=== PATIENT | male | born 1975 | race Caucasian/White ===

== ENCOUNTER 2017-04-02 19:01 | Inpatient (IN) | payer BC ==
[2017-04-02] MEDS ORDERED: Acetaminophen 325 MG Tab PO ONE (19:10)
[2017-04-02] MEDS ORDERED: Acetaminophen 500 MG Tab PO ONE (19:13)
--- NOTE | 2017-04-02 19:35 | EDM.PDOC ---
ED HPI GENERAL MEDICAL PROBLEM - General Chief Complaint: Lower Extremity Injury/Pain Stated Complaint: sore LLE Time Seen by Provider: 04/02/17 19:08 Source of Information: Reports: Patient History Limitations: Reports: No Limitations - History of Present Illness INITIAL COMMENTS - FREE TEXT/NARRATIVE: This patient is a 41 year old male that presents to the ER. Patient is noncompliant patient. Patient is HTN and Diabetic, but has not been taking his medications. The patient reports that on he began to have fever, chills , diaphoresis, generally not feeling well. Patient reports later that evening he noticed his Left leg had redness, swelling, heat. Patient reports his did want him to go to the clinic on Monday, but the patient did not go. Patient reports it has now become worse. He reports that he generally feels worse and the redness in his left leg has become much worse. The patient is alert and oriented. The patient denies palma, dizziness, neck pain, neck stiffness, chest pain, shortness of breath, abd pain, urinary/bowel changes. Patient reports that he has had some nausea and vomited x2. Onset Date: 03/30/17 Location: Reports: Lower Extremity, Left Quality: Reports: Ache Severity: Moderate Improves with: Reports: None Worsens with: Reports: None Associated Symptoms: Reports: Diaphoresis, Fever/Chills, Malaise, Nausea/ Vomiting. Denies: Confusion, Chest Pain, Cough, cough w sputum, Headaches, Loss of Appetite, Rash, Seizure, Shortness of Breath, Syncope, Weakness Treatments GENERAL ASSISTANT: Reports: NSAIDS Left Leg Pain Score (Numeric/FACES): 9 - Related Data Allergies Allergy/AdvReac Type Severity Reaction Status Date / Time Penicillins Allergy Cannot Verified 04/02/17 19:10 Remember Home Meds: Home Meds Hydrochlorothiazide 25 mg PO DAILY 11/06/15 [History] Lisinopril 20 mg PO DAILY 11/06/15 [History] Spironolactone [Aldactone] 25 mg PO DAILY 11/06/15 [History] metFORMIN HCl [Metformin HCl] 500 mg PO BID 11/06/15 [History] Aspirin [Halfprin] 81 mg PO DAILY 04/02/17 [History] amLODIPine [Norvasc] 5 mg PO DAILY 04/02/17 [History] Past Medical History Cardiovascular History: Reports: Hypertension Genitourinary History: Reports: Chronic Renal Insuffiency Endocrine/Metabolic History: Reports: Diabetes, Type II, Obesity/BMI 30+ Dermatologic History: Reports: Other (See Below) Other Dermatologic History: cellulitis, MRSA - Infectious Disease History Infectious Disease History: Reports: MRSA - Past Surgical History HEENT Surgical History: Reports: Tonsillectomy Social & Family History - Family History Family Medical History: Noncontributory - Tobacco Use Smoking Status *Q: Never Smoker Second Hand Smoke Exposure: No - Caffeine Use Caffeine Use: Reports: Soda - Recreational Drug Use Recreational Drug Use: No Review of Systems - Review of Systems Review Of Systems: See Below Constitutional: Reports: Chills, Diaphoresis, Fever, Weakness (gnerally) Eyes: Reports: No Symptoms Ears: Reports: No Symptoms Nose: Reports: No Symptoms Mouth/Throat: Reports: No Symptoms Respiratory: Reports: No Symptoms Cardiovascular: Reports: No Symptoms GI/Abdominal: Reports: Nausea, Vomiting. Denies: Abdominal Pain, Diarrhea Genitourinary: Reports: No Symptoms Musculoskeletal: Reports: No Symptoms Skin: Reports: Erythema (LLE) Neurological: Reports: No Symptoms Psychiatric: Reports: No Symptoms ED EXAM, GENERAL - Physical Exam Exam: See Below Exam Limited By: No Limitations General Appearance: Alert, WD/WN, No Apparent Distress, Obese Eye Exam: Bilateral Eye: Normal Inspection, PERRL Ears: Normal External Exam, Normal Canal, Hearing Grossly Normal, Normal TMs Ear Exam: Bilateral Ear: Auricle Normal, Canal Normal, TM normal Nose: Normal Inspection, Normal Mucosa, No Blood Throat/Mouth: Normal Inspection, Normal Lips, Normal Teeth, Normal Gums, Normal Oropharynx, Normal Voice, No Airway Compromise Head: Atraumatic, Normocephalic Neck: Normal Inspection, Supple, Non-Tender, Full Range of Motion Respiratory/Chest: No Respiratory Distress, Lungs Clear, Normal Breath Sounds, No Accessory Muscle Use Cardiovascular: Normal Peripheral Pulses, No Edema, No Gallop, No JVD, No Murmur , No Rub, Tachycardia (120 on exam) Peripheral Pulses: 2+: Popliteal (L), Popliteal (R), Posterior Tibial (L), Posterior Tibial (R), Dorsalis Pedis (L), Dorsalis Pedis (R) Back Exam: Normal Inspection, Full Range of Motion Extremities: Leg Pain (LLE), Redness (LLE, Redness, heat, swelling from ankle to below knee circumferential. Posterior from ankle to mid upper thigh. ) Neurological: Alert, Oriented, Normal Cognition, Normal Gait, No Motor/Sensory Deficits Psychiatric: Normal Affect, Normal Mood Skin Exam: Warm, Dry, Intact, Normal Color, Pallor Lymphatic: No Adenopathy Course - Vital Signs Last Recorded V/S: Last Vital Signs Temp 100.4 F 04/03/17 00:09 Pulse 95 04/03/17 00:09 Resp 20 04/03/17 00:09 BP 197/104 H 04/03/17 00:09 Pulse Ox 96 04/03/17 00:09 - Orders/Labs/Meds Orders: Active Orders 24 hr Category Date Time Status VL Duplex Lwr Ext Veins Ltd Lt [US] Stat Exams 04/02/17 19:18 Taken CULTURE BLOOD [BC] Stat Lab 04/02/17 19:31 Received CULTURE BLOOD [BC] Stat Lab 04/02/17 19:31 Received Blood Culture x2 Reflex Set [OM.PC] Stat Oth 04/02/17 19:07 Ordered Medication Orders Acetaminophen (Tylenol) 650 mg PO Q4H PRN PRN Reason: Pain (Mild 1-3)/fever Hydrocodone Bitart/Acetaminophen ([place] 325-5 Mg) 2 tab PO Q4H PRN PRN Reason: Pain (moderate 4-6) Amlodipine Besylate (Norvasc) 5 mg PO DAILY [facility] Aspirin (Halfprin) 81 mg PO DAILY [facility] Ceftriaxone Sodium (Rocephin) 1 gm IVPUSH Q24H [facility] Docusate Sodium (Colace) 100 mg PO BID PRN PRN Reason: Constipation Enoxaparin Sodium (Lovenox) 160 mg SUBCUT Q12H [facility] Last Admin: 04/03/17 00:59 Dose: 160 mg Hydrochlorothiazide (Hydrochlorothiazide) 25 mg PO DAILY [facility] Sodium Chloride (Normal Saline) 1,000 mls @ 75 mls/hr IV ASDIRECTED [facility] Last Admin: 04/03/17 01:01 Dose: 75 mls/hr Vancomycin HCl 1 gm/ Sodium (Chloride) 250 mls @ 167 mls/hr IV Q24H [facility] Vancomycin HCl 1 gm/ Sodium (Chloride) 250 mls @ 167 mls/hr IV ONETIME ONE Stop: 04/03/17 02:38 Last Admin: 04/03/17 01:29 Dose: 167 mls/hr Ibuprofen (Motrin) 800 mg PO Q6H PRN PRN Reason: Pain (mild 1-3) Last Admin: 04/03/17 00:58 Dose: 800 mg Lisinopril (Prinivil) 20 mg PO DAILY [facility] Metformin HCl (Glucophage) 500 mg PO BID [facility] Morphine Sulfate (Morphine) 2 mg IVPUSH Q2H PRN PRN Reason: Pain (severe 7-10) Ondansetron HCl (Zofran) 4 mg IV Q6H PRN PRN Reason: Nausea/Vomiting Spironolactone (Aldactone) 25 mg PO DAILY [facility] Warfarin Sodium (Coumadin) 5 mg PO DAILY [facility] Stop: 04/04/17 10:00 Last Admin: 04/03/17 00:58 Dose: 5 mg Labs: Laboratory Tests 04/02/17 04/02/17 04/02/17 Range/Units 19:07 19:07 19:11 WBC 7.6 (5.0-10.0) 10^3/uL RBC 5.10 (4.50-6.00) 10^6/uL Hgb 13.5 L (14.0-18.0) g/dL Hct 41.4 (40.0-54.0) % MCV 81.2 L (82.0-94.0) fL MCH 26.5 L (27.0-32.0) pg MCHC 32.6 L (33.0-38.0) g/dL RDW Coeff of Mo 13.9 (11.0-15.0) % Plt Count 139 L (150-400) 10^3/uL Neut % (Auto) 84.4 (35-85) % Lymph % (Auto) 5.3 L (10-55) % [place] % (Auto) 9.8 (0-16) % Eos % (Auto) 0.1 (0-5) % Baso % (Auto) 0.4 (0-3) % Neut # (Auto) 6.37 (1.80-7.00) 10^3/uL Lymph # (Auto) 0.40 L (1.00-4.80) 10^3/uL [place] # (Auto) 0.74 (0.00-0.80) 10^3/uL Eos # (Auto) 0.01 (0.00-0.45) 10^3/uL Baso # (Auto) 0.03 10^3/uL Sodium 132 L (136-145) mEq/L Potassium 4.2 (3.5-5.0) mEq/L Chloride 98 (98-106) mEq/L Carbon Dioxide 23 (21-32) mmol/L BUN 20 H (7-18) mg/dL Creatinine 1.5 H (0.7-1.3) mg/dL Est Cr Clr Drug Dosing TNP Estimated GFR (MDRD) 51 L (>=60) mL/min Glucose 398 H* D (75-99) mg/dL Lactic Acid 1.4 (0.4-2.0) mmol/L Calcium 8.5 (8.4-10.1) mg/dL Total Bilirubin 2.2 H (0.0-1.0) mg/dL AST 41 H (15-37) U/L ALT 47 (12-78) U/L Alkaline Phosphatase 144 H (46-116) U/L C-Reactive Protein 25.6 H (0.2-0.8) mg/dL NT-Pro-B Natriuret Pep 6175 H (0-1000) pg/mL Total Protein 6.6 (6.4-8.2) g/dL Albumin 2.3 L (3.4-5.0) g/dL Meds: Medications Generic Name Dose Route Start Last Admin Trade Name Freq PRN Reason Stop Dose Admin Acetaminophen 650 mg 04/03/17 00:09 Tylenol PO Q4H PRN Pain (Mild 1-3)/fever Hydrocodone Bitart/Acetaminophen 2 tab 04/03/17 00:09 Coleman 325-5 Mg PO Q4H PRN Pain (moderate 4-6) Amlodipine Besylate 5 mg 04/03/17 08:00 Norvasc PO DAILY [facility] Aspirin 81 mg 04/03/17 08:00 Halfprin PO DAILY [facility] Ceftriaxone Sodium 1 gm 04/03/17 21:00 Rocephin IVPUSH Q24H [facility] Docusate Sodium 100 mg 04/03/17 00:09 Colace PO BID PRN Constipation Enoxaparin Sodium 160 mg 04/03/17 00:30 04/03/17 00:59 Lovenox SUBCUT 160 mg Q12H [facility] Administration Hydrochlorothiazide 25 mg 04/03/17 08:00 Hydrochlorothiazide PO DAILY [facility] Sodium Chloride 1,000 mls @ 75 mls/hr 04/03/17 00:09 04/03/17 01:01 Normal Saline IV 75 mls/hr ASDIRECTED [facility] Administration Vancomycin HCl 1 gm/ Sodium 250 mls @ 167 mls/hr 04/03/17 20:00 Chloride IV Q24H [facility] Vancomycin HCl 1 gm/ Sodium 250 mls @ 167 mls/hr 04/03/17 01:09 04/03/17 01: 29 Chloride IV 04/03/17 02:38 167 mls/hr ONETIME ONE Administration Ibuprofen 800 mg 04/03/17 00:09 04/03/17 00:58 Motrin PO 800 mg Q6H PRN Administration Pain (mild 1-3) Lisinopril 20 mg 04/03/17 08:00 Prinivil PO DAILY [facility] Metformin HCl 500 mg 04/03/17 08:00 Glucophage PO BID [facility] Morphine Sulfate 2 mg 04/03/17 00:09 Morphine IVPUSH Q2H PRN Pain (severe 7-10) Ondansetron HCl 4 mg 04/03/17 00:09 Zofran IV Q6H PRN Nausea/Vomiting Spironolactone 25 mg 04/03/17 08:00 Aldactone PO DAILY [facility] Warfarin Sodium 5 mg 04/03/17 00:09 04/03/17 00:58 Coumadin PO 04/04/17 10:00 5 mg DAILY [facility] Administration Discontinued Medications Generic Name Dose Route Start Last Admin Trade Name Freq PRN Reason Stop Dose Admin Acetaminophen 1,000 mg 04/02/17 19:10 04/02/17 19:26 Tylenol PO 04/02/17 19:11 Not Given NOW ONE Acetaminophen 1,000 mg 04/02/17 19:13 04/02/17 19:26 Tylenol Extra Strength PO 04/02/17 19:14 1,000 mg ONETIME ONE Administration Amlodipine Besylate 20 mg 04/03/17 01:14 04/03/17 01:29 Norvasc PO 04/03/17 01:15 20 mg NOW STA Administration Ceftriaxone Sodium 2 gm 04/02/17 20:01 04/02/17 20:27 Rocephin IVPUSH 04/02/17 20:02 2 gm ONETIME ONE Administration Sodium Chloride 1,000 mls @ 1,000 mls/hr 04/02/17 20:06 04/02/17 20:27 Normal Saline IV 04/02/17 21:05 250 mls/hr .BOLUS ONE Administration Lisinopril 5 mg 04/03/17 01:14 04/03/17 01:30 Prinivil PO 04/03/17 01:15 5 mg ONETIME ONE Administration Vancomycin HCl 1 dose 04/02/17 20:06 04/03/17 01:01 Pharmacy To Dose - Vancomycin .XX 04/02/17 20:07 Not Given ONETIME ONE - Radiology Interpretation Free Text/Narrative:: Venous US LLE: Interpreted by radiologist; Left distal popliteal thrombus, not occluded. History of ablation. Departure - Departure Time of Disposition: 21:10 Disposition: Admitted As Inpatient 64 Condition: Fair Clinical Impression: Noncompliance, Renal insufficiency Cellulitis Qualifiers: Site of cellulitis: extremity Site of cellulitis of extremity: lower extremity Laterality: left Qualified Code(s): L03.116 - Cellulitis of left lower limb Fever Qualifiers: Fever type: due to other condition Qualified Code(s): R50.81 - Fever presenting with conditions classified elsewhere DVT (deep venous thrombosis) Qualifiers: DVT location: lower extremity Affected thrombotic vein of extremity: popliteal Chronicity: acute Laterality: left Qualified Code(s): I82.432 - Acute embolism and thrombosis of left popliteal vein - Discharge Information - My Orders Last 24 Hours: My Active Orders 04/02/17 19:07 Blood Culture x2 Reflex Set [OM.PC] Stat 04/02/17 19:18 VL Duplex Lwr Ext Veins Ltd Lt [US] Stat 04/02/17 19:31 CULTURE BLOOD [BC] Stat CULTURE BLOOD [BC] Stat - Assessment/Plan Last 24 Hours: My Active Orders 04/02/17 19:07 Blood Culture x2 Reflex Set [OM.PC] Stat 04/02/17 19:18 VL Duplex Lwr Ext Veins Ltd Lt [US] Stat 04/02/17 19:31 CULTURE BLOOD [BC] Stat CULTURE BLOOD [BC] Stat Plan: PLEASE SEE RN NOTE FOR PFSH. PLEASE USE THIS ER H&P ADMIT H&P.
[2017-04-02 19:50] LABS: CHLORIDE,CL 98 mEq/L (98-106); SODIUM,NA 132 mEq/L (136-145)
[2017-04-02] MEDS ORDERED: cefTRIAXone 2 GM Vial IVPUSH ONE (20:01)
[2017-04-02] MEDS ORDERED: Sodium Chloride 0.9% 1,000 ML IV ONE (20:06)
[2017-04-03] MEDS ORDERED: Acetaminophen 325 MG Tab PO PRN (00:09)
[2017-04-03] MEDS ORDERED: Docusate Sodium 100 MG Cap PO PRN (00:09)
[2017-04-03] MEDS ORDERED: Morphine 2 MG/ML Syringe IVPUSH PRN (00:09)
[2017-04-03] MEDS ORDERED: Ondansetron 4 MG/2 ML SDV IV PRN (00:09)
[2017-04-03] MEDS: Ibuprofen 200 MG Tab PO PRN ×2 (00:58→11:54)
[2017-04-03] MEDS: Warfarin 5 MG Tab PO SCH ×2 (00:58→08:00)
[2017-04-03] MEDS: Enoxaparin 80 MG/0.8 ML Syringe SUBCUT SCH ×3 (00:59→19:51)
[2017-04-03] MEDS: Sodium Chloride 0.9% 1,000 ML IV SCH ×3 (01:01→19:54)
[2017-04-03] MEDS ORDERED: Lisinopril 5 MG Tab PO ONE (01:14)
[2017-04-03] MEDS ORDERED: amLODIPine 10 MG Tab PO STA (01:14)
[2017-04-03] MEDS ORDERED: Insulin Regular, Human 100 Units/ML 10 ML Vial SUBCUT ONE (02:54)
[2017-04-03] MEDS: Insulin Aspart 100 Units/ML 3 ML Pen SUBCUT SCH ×5 (04:00→20:48)
[2017-04-03] MEDS: Hydrochlorothiazide 25 MG Tab PO SCH (07:59)
[2017-04-03] MEDS: Spironolactone 25 MG Tab PO SCH (08:00)
[2017-04-03] MEDS: amLODIPine 2.5 MG Tab PO SCH (08:00)
[2017-04-03] MEDS: Lisinopril 20 MG Tab PO SCH (08:00)
[2017-04-03] MEDS: Aspirin 81 MG Tab.EC PO SCH (08:00)
[2017-04-03] MEDS: metFORMIN 500 MG Tab PO SCH ×2 (08:00→19:48)
[2017-04-03 08:24] LABS: CHLORIDE,CL 102 mEq/L (98-106); SODIUM,NA 136 mEq/L (136-145)
[2017-04-03] MEDS: Acetaminophen/HYDROcodone 325-5 MG Tab PO PRN (11:00)
--- NOTE | 2017-04-03 11:11 | PCM.PN ---
- General Info Date of Service: 04/03/17 Functional Status: Reports: Pain Controlled, Tolerating Diet, Ambulating - Review of Systems General: Reports: Fever, Malaise, Chills, Night Sweats HEENT: Reports: No Symptoms Pulmonary: Reports: No Symptoms. Denies: Shortness of Breath, Cough Cardiovascular: Reports: No Symptoms Gastrointestinal: Reports: No Symptoms Genitourinary: Reports: No Symptoms Musculoskeletal: Reports: No Symptoms Skin: Reports: Other (LLE redness, swelling, mild pain. ) Neurological: Reports: No Symptoms Psychiatric: Reports: No Symptoms - Patient Data Vitals - Most Recent: Last Vital Signs Temp 96.8 F 04/03/17 07:34 Pulse 89 04/03/17 07:34 Resp 20 04/03/17 07:34 BP 164/96 H 04/03/17 08:00 Pulse Ox 95 04/03/17 07:34 Weight - Most Recent: 351 lb 11.2 oz Lab Results Last 24 Hours: Laboratory Results - last 24 hr 04/03/17 04/03/17 04/03/17 Range/Units 04:03 07:31 07:40 WBC 11.4 H (5.0-10.0) 10^3/uL RBC 5.12 (4.50-6.00) 10^6/uL Hgb 13.7 L (14.0-18.0) g/dL Hct 42.1 (40.0-54.0) % MCV 82.2 (82.0-94.0) fL MCH 26.8 L (27.0-32.0) pg MCHC 32.5 L (33.0-38.0) g/dL RDW Coeff of Mo 14.3 (11.0-15.0) % Plt Count 138 L (150-400) 10^3/uL Neut % (Auto) 83.3 (35-85) % Lymph % (Auto) 6.5 L (10-55) % [place] % (Auto) 9.6 (0-16) % Eos % (Auto) 0.3 (0-5) % Baso % (Auto) 0.3 (0-3) % Neut # (Auto) 9.47 H (1.80-7.00) 10^3/uL Lymph # (Auto) 0.74 L (1.00-4.80) 10^3/uL [place] # (Auto) 1.09 H (0.00-0.80) 10^3/uL Eos # (Auto) 0.03 (0.00-0.45) 10^3/uL Baso # (Auto) 0.03 10^3/uL PT (9.7-12.3) SEC INR (0.92-1.18) Sodium (136-145) mEq/L Potassium (3.5-5.0) mEq/L Chloride (98-106) mEq/L Carbon Dioxide (21-32) mmol/L BUN (7-18) mg/dL Creatinine (0.7-1.3) mg/dL Est Cr Clr Drug Dosing mL/min Estimated GFR (MDRD) (>=60) mL/min Glucose (75-99) mg/dL POC Glucose 227 H 203 H (75-105) mg/dl Calcium (8.4-10.1) mg/dL C-Reactive Protein (0.2-0.8) mg/dL 04/03/17 04/03/17 Range/Units 07:40 07:40 WBC (5.0-10.0) 10^3/uL RBC (4.50-6.00) 10^6/uL Hgb (14.0-18.0) g/dL Hct (40.0-54.0) % MCV (82.0-94.0) fL MCH (27.0-32.0) pg MCHC (33.0-38.0) g/dL RDW Coeff of Mo (11.0-15.0) % Plt Count (150-400) 10^3/uL Neut % (Auto) (35-85) % Lymph % (Auto) (10-55) % [place] % (Auto) (0-16) % Eos % (Auto) (0-5) % Baso % (Auto) (0-3) % Neut # (Auto) (1.80-7.00) 10^3/uL Lymph # (Auto) (1.00-4.80) 10^3/uL [place] # (Auto) (0.00-0.80) 10^3/uL Eos # (Auto) (0.00-0.45) 10^3/uL Baso # (Auto) 10^3/uL PT 11.4 (9.7-12.3) SEC INR 1.05 (0.92-1.18) Sodium 136 (136-145) mEq/L Potassium 3.7 (3.5-5.0) mEq/L Chloride 102 (98-106) mEq/L Carbon Dioxide 28 (21-32) mmol/L BUN 16 (7-18) mg/dL Creatinine 1.3 (0.7-1.3) mg/dL Est Cr Clr Drug Dosing 89.95 mL/min Estimated GFR (MDRD) > 60 (>=60) mL/min Glucose 218 H D (75-99) mg/dL POC Glucose (75-105) mg/dl Calcium 8.3 L (8.4-10.1) mg/dL C-Reactive Protein 27.2 H (0.2-0.8) mg/dL Med Orders - Current: Current Medications Acetaminophen (Tylenol) 650 mg PO Q4H PRN PRN Reason: Pain (Mild 1-3)/fever Hydrocodone Bitart/Acetaminophen ([place] 325-5 Mg) 2 tab PO Q4H PRN PRN Reason: Pain (moderate 4-6) Last Admin: 04/03/17 11:00 Dose: 2 tab Amlodipine Besylate (Norvasc) 5 mg PO DAILY [facility] Last Admin: 04/03/17 08:00 Dose: 5 mg Aspirin (Halfprin) 81 mg PO DAILY [facility] Last Admin: 04/03/17 08:00 Dose: 81 mg Ceftriaxone Sodium (Rocephin) 1 gm IVPUSH Q24H [facility] Docusate Sodium (Colace) 100 mg PO BID PRN PRN Reason: Constipation Enoxaparin Sodium (Lovenox) 160 mg SUBCUT Q12H [facility] Last Admin: 04/03/17 00:59 Dose: 160 mg Hydrochlorothiazide (Hydrochlorothiazide) 25 mg PO DAILY [facility] Last Admin: 04/03/17 07:59 Dose: 25 mg Sodium Chloride (Normal Saline) 1,000 mls @ 75 mls/hr IV ASDIRECTED [facility] Last Admin: 04/03/17 01:01 Dose: 75 mls/hr Vancomycin HCl 1 gm/ Sodium (Chloride) 250 mls @ 167 mls/hr IV Q24H [facility] Ibuprofen (Motrin) 800 mg PO Q6H PRN PRN Reason: Pain (mild 1-3) Last Admin: 04/03/17 00:58 Dose: 800 mg Insulin Aspart (Novolog) 0 unit SUBCUT WITHMEALSANDBED [facility] PRN Reason: Protocol Last Admin: 04/03/17 08:01 Dose: 6 units Lisinopril (Prinivil) 20 mg PO DAILY [facility] Last Admin: 04/03/17 08:00 Dose: 20 mg Metformin HCl (Glucophage) 500 mg PO BID [facility] Last Admin: 04/03/17 08:00 Dose: 500 mg Morphine Sulfate (Morphine) 2 mg IVPUSH Q2H PRN PRN Reason: Pain (severe 7-10) Ondansetron HCl (Zofran) 4 mg IV Q6H PRN PRN Reason: Nausea/Vomiting Spironolactone (Aldactone) 25 mg PO DAILY [facility] Last Admin: 04/03/17 08:00 Dose: 25 mg Warfarin Sodium (Coumadin) 5 mg PO DAILY [facility] Stop: 04/04/17 10:00 Last Admin: 04/03/17 08:00 Dose: 5 mg Discontinued Medications Acetaminophen (Tylenol) 1,000 mg PO NOW ONE Stop: 04/02/17 19:11 Last Admin: 04/02/17 19:26 Dose: Not Given Acetaminophen (Tylenol Extra Strength) 1,000 mg PO ONETIME ONE Stop: 04/02/17 19:14 Last Admin: 04/02/17 19:26 Dose: 1,000 mg Amlodipine Besylate (Norvasc) 20 mg PO NOW [facility] Stop: 04/03/17 01:15 Last Admin: 04/03/17 01:29 Dose: 20 mg Ceftriaxone Sodium (Rocephin) 2 gm IVPUSH ONETIME ONE Stop: 04/02/17 20:02 Last Admin: 04/02/17 20:27 Dose: 2 gm Sodium Chloride (Normal Saline) 1,000 mls @ 1,000 mls/hr IV .BOLUS ONE Stop: 04/02/17 21:05 Last Admin: 04/02/17 20:27 Dose: 250 mls/hr Vancomycin HCl 1 gm/ Sodium (Chloride) 250 mls @ 167 mls/hr IV ONETIME ONE Stop: 04/03/17 02:38 Last Admin: 04/03/17 01:29 Dose: 167 mls/hr Insulin Human Regular (Novolin R) 10 unit SUBCUT ONETIME ONE PRN Reason: Protocol Stop: 04/03/17 02:55 Last Admin: 04/03/17 03:31 Dose: Not Given Lisinopril (Prinivil) 5 mg PO ONETIME ONE Stop: 04/03/17 01:15 Last Admin: 04/03/17 01:30 Dose: 5 mg Vancomycin HCl (Pharmacy To Dose - Vancomycin) 1 dose .XX ONETIME ONE Stop: 04/02/17 20:07 Last Admin: 04/03/17 01:01 Dose: Not Given - Exam General: Alert, Oriented, Cooperative HEENT: Pupils Equal, Pupils Reactive, Mucous Membr. Moist/[place] Neck: Supple Lungs: Clear to Auscultation, Normal Respiratory Effort Cardiovascular: Regular Rate, Regular Rhythm, No Murmurs GI/Abdominal Exam: Soft, Non-Tender Back Exam: Normal Inspection, Full Range of Motion Extremities: Normal Range of Motion, No Pedal Edema, Normal Capillary Refill, Other (LLE redness, swelling, heat, mild tender. Cellulitis from ankle to thigh , circumferential. Marked with marker on leg of patient. ) Peripheral Pulses: 2+: Popliteal (L), Popliteal (R), Posterior Tibial (L), Posterior Tibial (R), Dorsalis Pedis (L), Dorsalis Pedis (R) Skin: Warm, Dry, Intact Neurological: No New Focal Deficit Psy/Mental Status: Alert, Normal Affect, Normal Mood - Problem List Review Problem List Initiated/Reviewed/Updated: Yes - My Orders Last 24 Hours: My Active Orders 04/02/17 23:23 Resuscitation Status Routine 04/03/17 00:09 Patient Status [ADT] Routine Antiembolic Devices [RC] 1000,2200 Blood Glucose Check, Bedside [RC] 0730,1130,1500,2100 Notify Provider Vital Signs [RC] .PRN Oxygen Therapy [RC] .PRN Up With Assistance [RC] .PRN Up to Chair [RC] .PRN Vital Signs [RC] 0000,0400,0800,1200,1600,2000 Acetaminophen [Tylenol] 650 mg PO Q4H PRN Acetaminophen/HYDROcodone [[place] 325-5 MG] 2 tab PO Q4H PRN Docusate Sodium [Colace] 100 mg PO BID PRN Ibuprofen [Motrin] 800 mg PO Q6H PRN Morphine 2 mg IVPUSH Q2H PRN Ondansetron [Zofran] 4 mg IV Q6H PRN Sodium Chloride 0.9% [Normal Saline] 1,000 ml IV ASDIRECTED Warfarin [Coumadin] 5 mg PO DAILY Antiembolic Hose [OM.PC] Per Unit Routine 04/03/17 00:30 Enoxaparin [Lovenox] 160 mg SUBCUT Q12H 04/03/17 03:00 Insulin Aspart [NovoLOG] See Protocol SUBCUT WITHMEALSANDBED 04/03/17 08:00 Aspirin [Halfprin] 81 mg PO DAILY Hydrochlorothiazide 25 mg PO DAILY Lisinopril [Prinivil] 20 mg PO DAILY Spironolactone [Aldactone] 25 mg PO DAILY amLODIPine [Norvasc] 5 mg PO DAILY metFORMIN [Glucophage] 500 mg PO BID 04/03/17 20:00 Vancomycin 1 gm Sodium Chloride 0.9% [Normal Saline] 250 ml IV Q24H 04/03/17 21:00 cefTRIAXone [Rocephin] 1 gm IVPUSH Q24H 04/03/17 Breakfast Consistent Carbohydrate Diet [DIET] 04/04/17 05:00 BASIC METABOLIC PANEL,BMP [CHEM] DAILY C-REACTIVE PROTEIN [CHEM] DAILY CBC WITH AUTO DIFF [HEME] DAILY INR,PT,PROTHROMBIN TIME [COAG] DAILY 04/05/17 05:00 BASIC METABOLIC PANEL,BMP [CHEM] DAILY C-REACTIVE PROTEIN [CHEM] DAILY CBC WITH AUTO DIFF [HEME] DAILY INR,PT,PROTHROMBIN TIME [COAG] DAILY - Plan Plan:: This patient is a 41 year old male that was admitted from the ER last night. Patient is admitted for cellulitis, fever, renal insufficiency, diabetes uncontrolled. The patient is alert and oriented. His cellulitis has become more circumferential to the left thigh near groin area now. The patient reports that he does feel a little better than what he did last night. THe patient labs yesterday were wbc 76., BUN 20, CR 1.5, Glucose 398, CRP 25.6. Today his labs are wbc 11.4, BUN 16, CR 1.3, Glucose 218, CRP 27.2. We will continue with current treatment plan of abx tx, fluids, and treating blood sugars.
[2017-04-03] MEDS: cefTRIAXone 1 GM Vial IVPUSH SCH (20:48)
[2017-04-04] MEDS: Ibuprofen 200 MG Tab PO PRN ×3 (01:20→17:27)
[2017-04-04 07:38] LABS: CHLORIDE,CL 100 mEq/L (98-106); SODIUM,NA 136 mEq/L (136-145)
[2017-04-04] MEDS: amLODIPine 2.5 MG Tab PO SCH (07:40)
[2017-04-04] MEDS: metFORMIN 500 MG Tab PO SCH ×2 (07:41→17:08)
[2017-04-04] MEDS: Warfarin 5 MG Tab PO SCH (07:41)
[2017-04-04] MEDS: Hydrochlorothiazide 25 MG Tab PO SCH (07:41)
[2017-04-04] MEDS: Lisinopril 20 MG Tab PO SCH (07:41)
[2017-04-04] MEDS: Spironolactone 25 MG Tab PO SCH (07:42)
[2017-04-04] MEDS: Aspirin 81 MG Tab.EC PO SCH (07:42)
[2017-04-04] MEDS: Enoxaparin 80 MG/0.8 ML Syringe SUBCUT SCH ×2 (07:42→20:28)
[2017-04-04] MEDS: Insulin Aspart 100 Units/ML 3 ML Pen SUBCUT SCH ×4 (07:44→20:30)
[2017-04-04] MEDS ORDERED: Warfarin 2.5 MG Tab PO SCH (08:45)
[2017-04-04] MEDS: Acetaminophen/HYDROcodone 325-5 MG Tab PO PRN (20:43)
[2017-04-04] MEDS: Sodium Chloride 0.9% 1,000 ML IV SCH (20:45)
--- NOTE | 2017-04-04 21:47 | PCM.PN ---
- General Info Date of Service: 04/04/17 Admission Dx/Problem (Free Text): Cellulitis of LLE Thrombus to popliteal vein Functional Status: Reports: Pain Controlled, Tolerating Diet. Denies: Ambulating - Review of Systems General: Reports: Fever, Weakness, Fatigue HEENT: Reports: No Symptoms Pulmonary: Denies: Shortness of Breath, Cough, Wheezing Cardiovascular: Reports: Edema. Denies: Chest Pain, Lightheadedness Gastrointestinal: Reports: No Symptoms Musculoskeletal: Reports: Leg Pain Skin: Reports: Other (erythema) Neurological: Reports: No Symptoms - Patient Data Vitals - Most Recent: Last Vital Signs Temp 101.0 F H 04/04/17 19:45 Pulse 103 H 04/04/17 19:45 Resp 18 04/04/17 19:45 BP 158/92 H 04/04/17 19:45 Pulse Ox 97 04/04/17 19:45 Weight - Most Recent: 351 lb 11.2 oz I&O - Last 24 Hours: Intake & Output 04/04/17 04/04/17 04/04/17 06:59 14:59 22:59 Intake Total 1720 360 Balance 1720 360 Lab Results Last 24 Hours: Laboratory Results - last 24 hr 04/04/17 04/04/17 04/04/17 Range/Units 07:00 07:00 07:00 WBC 11.2 H (5.0-10.0) 10^3/uL RBC 4.98 (4.50-6.00) 10^6/uL Hgb 13.1 L (14.0-18.0) g/dL Hct 41.0 (40.0-54.0) % MCV 82.3 (82.0-94.0) fL MCH 26.3 L (27.0-32.0) pg MCHC 32.0 L (33.0-38.0) g/dL RDW Coeff of Mo 14.2 (11.0-15.0) % Plt Count 160 (150-400) 10^3/uL Neut % (Auto) 79.5 (35-85) % Lymph % (Auto) 7.7 L (10-55) % [place] % (Auto) 11.5 (0-16) % Eos % (Auto) 0.9 (0-5) % Baso % (Auto) 0.4 (0-3) % Neut # (Auto) 8.87 H (1.80-7.00) 10^3/uL Lymph # (Auto) 0.86 L (1.00-4.80) 10^3/uL [place] # (Auto) 1.28 H (0.00-0.80) 10^3/uL Eos # (Auto) 0.10 (0.00-0.45) 10^3/uL Baso # (Auto) 0.04 10^3/uL PT 11.4 (9.7-12.3) SEC INR 1.05 (0.92-1.18) Sodium 136 (136-145) mEq/L Potassium 3.7 (3.5-5.0) mEq/L Chloride 100 (98-106) mEq/L Carbon Dioxide 27 (21-32) mmol/L BUN 16 (7-18) mg/dL Creatinine 1.3 (0.7-1.3) mg/dL Est Cr Clr Drug Dosing 89.95 mL/min Estimated GFR (MDRD) > 60 (>=60) mL/min Glucose 214 H (75-99) mg/dL POC Glucose (75-105) mg/dl Calcium 8.3 L (8.4-10.1) mg/dL C-Reactive Protein 27.8 H (0.2-0.8) mg/dL 04/04/17 04/04/17 04/04/17 Range/Units 07:44 11:27 17:06 WBC (5.0-10.0) 10^3/uL RBC (4.50-6.00) 10^6/uL Hgb (14.0-18.0) g/dL Hct (40.0-54.0) % MCV (82.0-94.0) fL MCH (27.0-32.0) pg MCHC (33.0-38.0) g/dL RDW Coeff of Mo (11.0-15.0) % Plt Count (150-400) 10^3/uL Neut % (Auto) (35-85) % Lymph % (Auto) (10-55) % [place] % (Auto) (0-16) % Eos % (Auto) (0-5) % Baso % (Auto) (0-3) % Neut # (Auto) (1.80-7.00) 10^3/uL Lymph # (Auto) (1.00-4.80) 10^3/uL [place] # (Auto) (0.00-0.80) 10^3/uL Eos # (Auto) (0.00-0.45) 10^3/uL Baso # (Auto) 10^3/uL PT (9.7-12.3) SEC INR (0.92-1.18) Sodium (136-145) mEq/L Potassium (3.5-5.0) mEq/L Chloride (98-106) mEq/L Carbon Dioxide (21-32) mmol/L BUN (7-18) mg/dL Creatinine (0.7-1.3) mg/dL Est Cr Clr Drug Dosing mL/min Estimated GFR (MDRD) (>=60) mL/min Glucose (75-99) mg/dL POC Glucose 233 H 258 H 305 H (75-105) mg/dl Calcium (8.4-10.1) mg/dL C-Reactive Protein (0.2-0.8) mg/dL 04/04/17 Range/Units 20:18 WBC (5.0-10.0) 10^3/uL RBC (4.50-6.00) 10^6/uL Hgb (14.0-18.0) g/dL Hct (40.0-54.0) % MCV (82.0-94.0) fL MCH (27.0-32.0) pg MCHC (33.0-38.0) g/dL RDW Coeff of Mo (11.0-15.0) % Plt Count (150-400) 10^3/uL Neut % (Auto) (35-85) % Lymph % (Auto) (10-55) % [place] % (Auto) (0-16) % Eos % (Auto) (0-5) % Baso % (Auto) (0-3) % Neut # (Auto) (1.80-7.00) 10^3/uL Lymph # (Auto) (1.00-4.80) 10^3/uL [place] # (Auto) (0.00-0.80) 10^3/uL Eos # (Auto) (0.00-0.45) 10^3/uL Baso # (Auto) 10^3/uL PT (9.7-12.3) SEC INR (0.92-1.18) Sodium (136-145) mEq/L Potassium (3.5-5.0) mEq/L Chloride (98-106) mEq/L Carbon Dioxide (21-32) mmol/L BUN (7-18) mg/dL Creatinine (0.7-1.3) mg/dL Est Cr Clr Drug Dosing mL/min Estimated GFR (MDRD) (>=60) mL/min Glucose (75-99) mg/dL POC Glucose 295 H (75-105) mg/dl Calcium (8.4-10.1) mg/dL C-Reactive Protein (0.2-0.8) mg/dL Med Orders - Current: Current Medications Acetaminophen (Tylenol) 650 mg PO Q4H PRN PRN Reason: Pain (Mild 1-3)/fever Last Admin: 04/04/17 04:08 Dose: 650 mg Hydrocodone Bitart/Acetaminophen ([place] 325-5 Mg) 2 tab PO Q4H PRN PRN Reason: Pain (moderate 4-6) Last Admin: 04/04/17 20:43 Dose: 1 tab Amlodipine Besylate (Norvasc) 5 mg PO DAILY [facility] Last Admin: 04/04/17 07:40 Dose: 5 mg Aspirin (Halfprin) 81 mg PO DAILY [facility] Last Admin: 04/04/17 07:42 Dose: 81 mg Ceftriaxone Sodium (Rocephin) 1 gm IVPUSH Q24H [facility] Last Admin: 04/03/17 20:48 Dose: 1 gm Docusate Sodium (Colace) 100 mg PO BID PRN PRN Reason: Constipation Last Admin: 04/04/17 20:43 Dose: 100 mg Enoxaparin Sodium (Lovenox) 160 mg SUBCUT Q12H [facility] Last Admin: 04/04/17 20:28 Dose: 160 mg Hydrochlorothiazide (Hydrochlorothiazide) 25 mg PO DAILY [facility] Last Admin: 04/04/17 07:41 Dose: 25 mg Sodium Chloride (Normal Saline) 1,000 mls @ 75 mls/hr IV ASDIRECTED [facility] Last Admin: 04/04/17 20:45 Dose: 75 mls/hr Vancomycin HCl 1 gm/ Sodium (Chloride) 250 mls @ 167 mls/hr IV Q24H [facility] Last Admin: 04/04/17 20:17 Dose: 167 mls/hr Ibuprofen (Motrin) 800 mg PO Q6H PRN PRN Reason: Pain (mild 1-3) Last Admin: 04/04/17 17:27 Dose: 800 mg Insulin Aspart (Novolog) 0 unit SUBCUT WITHMEALSANDBED [facility] PRN Reason: Protocol Last Admin: 04/04/17 20:30 Dose: 9 units Lisinopril (Prinivil) 20 mg PO DAILY [facility] Last Admin: 04/04/17 07:41 Dose: 20 mg Metformin HCl (Glucophage) 500 mg PO BIDMEALS [facility] Last Admin: 04/04/17 17:08 Dose: 500 mg Morphine Sulfate (Morphine) 2 mg IVPUSH Q2H PRN PRN Reason: Pain (severe 7-10) Ondansetron HCl (Zofran) 4 mg IV Q6H PRN PRN Reason: Nausea/Vomiting Spironolactone (Aldactone) 25 mg PO DAILY [facility] Last Admin: 04/04/17 07:42 Dose: 25 mg Warfarin Sodium (Coumadin) 2.5 mg PO ONETIME [facility] Last Admin: 04/04/17 11:51 Dose: 2.5 mg Discontinued Medications Acetaminophen (Tylenol) 1,000 mg PO NOW ONE Stop: 04/02/17 19:11 Last Admin: 04/02/17 19:26 Dose: Not Given Acetaminophen (Tylenol Extra Strength) 1,000 mg PO ONETIME ONE Stop: 04/02/17 19:14 Last Admin: 04/02/17 19:26 Dose: 1,000 mg Amlodipine Besylate (Norvasc) 20 mg PO NOW STA Stop: 04/03/17 01:15 Last Admin: 04/03/17 01:29 Dose: 20 mg Ceftriaxone Sodium (Rocephin) 2 gm IVPUSH ONETIME ONE Stop: 04/02/17 20:02 Last Admin: 04/02/17 20:27 Dose: 2 gm Enoxaparin Sodium (Lovenox) 160 mg SUBCUT Q12H [facility] Last Admin: 04/03/17 11:52 Dose: 160 mg Sodium Chloride (Normal Saline) 1,000 mls @ 1,000 mls/hr IV .BOLUS ONE Stop: 04/02/17 21:05 Last Admin: 04/02/17 20:27 Dose: 250 mls/hr Vancomycin HCl 1 gm/ Sodium (Chloride) 250 mls @ 167 mls/hr IV ONETIME ONE Stop: 04/03/17 02:38 Last Admin: 04/03/17 01:29 Dose: 167 mls/hr Insulin Human Regular (Novolin R) 10 unit SUBCUT ONETIME ONE PRN Reason: Protocol Stop: 04/03/17 02:55 Last Admin: 04/03/17 03:31 Dose: Not Given Lisinopril (Prinivil) 5 mg PO ONETIME ONE Stop: 04/03/17 01:15 Last Admin: 04/03/17 01:30 Dose: 5 mg Metformin HCl (Glucophage) 500 mg PO BID [facility] Last Admin: 04/04/17 07:41 Dose: 500 mg Vancomycin HCl (Pharmacy To Dose - Vancomycin) 1 dose .XX ONETIME ONE Stop: 04/02/17 20:07 Last Admin: 04/03/17 01:01 Dose: Not Given Warfarin Sodium (Coumadin) 5 mg PO DAILY [facility] Stop: 04/04/17 10:00 Last Admin: 04/04/17 07:41 Dose: 5 mg - Exam General: Alert, Oriented HEENT: Mucous Membr. Moist/[place] Neck: Supple Lungs: Clear to Auscultation, Normal Respiratory Effort Cardiovascular: Regular Rate, Regular Rhythm GI/Abdominal Exam: Normal Bowel Sounds, Soft, Non-Tender Extremities: Pedal Edema, Leg Pain, Increased Warmth, Redness Skin: Other (erythema and swelling to left lower extremity. Mildly improved from markings placed on leg from admit) Neurological: No New Focal Deficit - Problem List & Annotations (1) Cellulitis SNOMED Code(s): 626674313 Code(s): L03.90 - CELLULITIS, UNSPECIFIED Status: Acute Current Visit: Yes Qualifiers: Site of cellulitis: extremity Site of cellulitis of extremity: lower extremity Laterality: left Qualified Code(s): L03.116 - Cellulitis of left lower limb (2) DVT (deep venous thrombosis) SNOMED Code(s): 775154211 Code(s): I82.409 - ACUTE EMBOLISM AND THOMBOS UNSP DEEP VN UNSP LOWER EXTREMITY Status: Acute Current Visit: Yes Qualifiers: DVT location: lower extremity Affected thrombotic vein of extremity: popliteal Chronicity: acute Laterality: left Qualified Code(s): I82.432 - Acute embolism and thrombosis of left popliteal vein (3) Fever SNOMED Code(s): 437704724 Code(s): R50.9 - FEVER, UNSPECIFIED Status: Acute Current Visit: Yes Qualifiers: Fever type: due to other condition Qualified Code(s): R50.81 - Fever presenting with conditions classified elsewhere (4) Noncompliance SNOMED Code(s): 1338298 Code(s): Z91.19 - PATIENT'S NONCOMPLIANCE W OTH MEDICAL TREATMENT AND REGIMEN Status: Acute Current Visit: Yes - Problem List Review Problem List Initiated/Reviewed/Updated: Yes - My Orders Last 24 Hours: My Active Orders 04/04/17 08:45 Warfarin [Coumadin] 2.5 mg PO ONETIME 04/04/17 17:30 metFORMIN [Glucophage] 500 mg PO BIDMEALS - Assessment Assessment:: Cellulitis of LLE Thrombus of popliteal vein Fever Noncompliance - Plan Plan:: This patient is a 41 year old male that was admitted from the ER last night. Patient is admitted for cellulitis, fever, renal insufficiency, diabetes uncontrolled. The patient is alert and oriented. His cellulitis has become more circumferential to the left thigh near groin area now. The patient reports that he does feel a little better than what he did last night. THe patient labs yesterday were wbc 76., BUN 20, CR 1.5, Glucose 398, CRP 25.6. Today his labs are wbc 11.4, BUN 16, CR 1.3, Glucose 218, CRP 27.2. We will continue with current treatment plan of abx tx, fluids, and treating blood sugars. 04-04-2017 Patient admits to feeling less pain today. Less discomfort with weight bearing on LLE. Redness is improving per areas marked yesterday. Patient has had fevers this afternoon. Labs noted to have stable WBC of 11.4 to 11.2 INR subtherapeutic on 5 mg of Coumadin at 1.05. No growth noted as of yet per blood cultures. Will continue IV Vancomycin and Rocephin. Continue daily INR. Given 7.5 mg of Coumadin today. Will order dose daily. Continue monitoring blood sugars with insulin per sliding scale. Inappropriate yet for discharge due to swelling, redness, fever.
[2017-04-04] MEDS: cefTRIAXone 1 GM Vial IVPUSH SCH (22:20)
[2017-04-05] MEDS: Acetaminophen/HYDROcodone 325-5 MG Tab PO PRN ×3 (05:15→13:47)
[2017-04-05] MEDS: Spironolactone 25 MG Tab PO SCH (07:33)
[2017-04-05] MEDS: metFORMIN 500 MG Tab PO SCH ×2 (07:33→17:33)
[2017-04-05] MEDS: Aspirin 81 MG Tab.EC PO SCH (07:33)
[2017-04-05] MEDS: Enoxaparin 80 MG/0.8 ML Syringe SUBCUT SCH ×2 (07:34→20:41)
[2017-04-05] MEDS: Hydrochlorothiazide 25 MG Tab PO SCH (07:34)
[2017-04-05] MEDS: amLODIPine 2.5 MG Tab PO SCH (07:34)
[2017-04-05] MEDS: Lisinopril 20 MG Tab PO SCH (07:36)
[2017-04-05 07:37] LABS: CHLORIDE,CL 99 mEq/L (98-106); SODIUM,NA 136 mEq/L (136-145)
[2017-04-05] MEDS: Insulin Aspart 100 Units/ML 3 ML Pen SUBCUT SCH ×4 (08:02→20:53)
[2017-04-05] MEDS ORDERED: Sodium Chloride 0.9% 10 ML Syringe FLUSH PRN (09:11)
--- NOTE | 2017-04-05 09:23 | PCM.PN ---
- General Info Date of Service: 04/05/17 Admission Dx/Problem (Free Text): Cellulitis of LLE Thrombus to popliteal vein Functional Status: Reports: Pain Controlled, Tolerating Diet. Denies: Ambulating - Review of Systems General: Reports: Fever, Weakness HEENT: Reports: No Symptoms Pulmonary: Denies: Shortness of Breath, Cough, Wheezing Cardiovascular: Reports: Edema. Denies: Chest Pain, Lightheadedness Gastrointestinal: Denies: Abdominal Pain, Nausea, Vomiting Genitourinary: Reports: No Symptoms Musculoskeletal: Reports: Leg Pain Skin: Reports: Other (redness) Neurological: Reports: No Symptoms Psychiatric: Reports: No Symptoms - Patient Data Vitals - Most Recent: Last Vital Signs Temp 98.8 F 04/05/17 07:52 Pulse 93 04/05/17 07:52 Resp 18 04/05/17 07:52 BP 166/96 H 04/05/17 07:52 Pulse Ox 95 04/05/17 07:52 Weight - Most Recent: 351 lb 11.2 oz I&O - Last 24 Hours: Intake & Output 04/04/17 04/05/17 04/05/17 22:59 06:59 14:59 Intake Total 360 Balance 360 Lab Results Last 24 Hours: Laboratory Results - last 24 hr 04/04/17 04/04/17 04/04/17 Range/Units 11:27 17:06 20:18 WBC (5.0-10.0) 10^3/uL RBC (4.50-6.00) 10^6/uL Hgb (14.0-18.0) g/dL Hct (40.0-54.0) % MCV (82.0-94.0) fL MCH (27.0-32.0) pg MCHC (33.0-38.0) g/dL RDW Coeff of Mo (11.0-15.0) % Plt Count (150-400) 10^3/uL Add Manual Diff Neutrophils % (Manual) (35-85) % Band Neutrophils % (0-5) % Lymphocytes % (Manual) (21-55) % Monocytes % (Manual) (2-12) % Absolute Neutrophils (1.80-7.00) 10^3/uL Lymphocytes # (Manual) (1.00-4.80) 10^3/uL Monocytes # (Manual) (0.00-0.80) 10^3/uL PT (9.7-12.3) SEC INR (0.92-1.18) Sodium (136-145) mEq/L Potassium (3.5-5.0) mEq/L Chloride (98-106) mEq/L Carbon Dioxide (21-32) mmol/L BUN (7-18) mg/dL Creatinine (0.7-1.3) mg/dL Est Cr Clr Drug Dosing mL/min Estimated GFR (MDRD) (>=60) mL/min Glucose (75-99) mg/dL POC Glucose 258 H 305 H 295 H (75-105) mg/dl Calcium (8.4-10.1) mg/dL C-Reactive Protein (0.2-0.8) mg/dL 04/05/17 04/05/17 04/05/17 Range/Units 05:00 07:15 07:15 WBC 9.5 (5.0-10.0) 10^3/uL RBC 4.97 (4.50-6.00) 10^6/uL Hgb 13.3 L (14.0-18.0) g/dL Hct 41.0 (40.0-54.0) % MCV 82.5 (82.0-94.0) fL MCH 26.8 L (27.0-32.0) pg MCHC 32.4 L (33.0-38.0) g/dL RDW Coeff of Mo 14.3 (11.0-15.0) % Plt Count 192 (150-400) 10^3/uL Add Manual Diff Yes Neutrophils % (Manual) 90 H (35-85) % Band Neutrophils % 1 (0-5) % Lymphocytes % (Manual) 5 L (21-55) % Monocytes % (Manual) 4 (2-12) % Absolute Neutrophils 8.65 H (1.80-7.00) 10^3/uL Lymphocytes # (Manual) 0.48 L (1.00-4.80) 10^3/uL Monocytes # (Manual) 0.38 (0.00-0.80) 10^3/uL PT 12.4 H (9.7-12.3) SEC INR 1.14 (0.92-1.18) Sodium 136 (136-145) mEq/L Potassium 3.8 (3.5-5.0) mEq/L Chloride 99 (98-106) mEq/L Carbon Dioxide 28 (21-32) mmol/L BUN 16 (7-18) mg/dL Creatinine 1.3 (0.7-1.3) mg/dL Est Cr Clr Drug Dosing 89.95 mL/min Estimated GFR (MDRD) > 60 (>=60) mL/min Glucose 236 H (75-99) mg/dL POC Glucose (75-105) mg/dl Calcium 8.1 L (8.4-10.1) mg/dL C-Reactive Protein 22.5 H (0.2-0.8) mg/dL 04/05/17 Range/Units 07:31 WBC (5.0-10.0) 10^3/uL RBC (4.50-6.00) 10^6/uL Hgb (14.0-18.0) g/dL Hct (40.0-54.0) % MCV (82.0-94.0) fL MCH (27.0-32.0) pg MCHC (33.0-38.0) g/dL RDW Coeff of Mo (11.0-15.0) % Plt Count (150-400) 10^3/uL Add Manual Diff Neutrophils % (Manual) (35-85) % Band Neutrophils % (0-5) % Lymphocytes % (Manual) (21-55) % Monocytes % (Manual) (2-12) % Absolute Neutrophils (1.80-7.00) 10^3/uL Lymphocytes # (Manual) (1.00-4.80) 10^3/uL Monocytes # (Manual) (0.00-0.80) 10^3/uL PT (9.7-12.3) SEC INR (0.92-1.18) Sodium (136-145) mEq/L Potassium (3.5-5.0) mEq/L Chloride (98-106) mEq/L Carbon Dioxide (21-32) mmol/L BUN (7-18) mg/dL Creatinine (0.7-1.3) mg/dL Est Cr Clr Drug Dosing mL/min Estimated GFR (MDRD) (>=60) mL/min Glucose (75-99) mg/dL POC Glucose 226 H (75-105) mg/dl Calcium (8.4-10.1) mg/dL C-Reactive Protein (0.2-0.8) mg/dL Med Orders - Current: Current Medications Acetaminophen (Tylenol) 650 mg PO Q4H PRN PRN Reason: Pain (Mild 1-3)/fever Last Admin: 04/04/17 04:08 Dose: 650 mg Hydrocodone Bitart/Acetaminophen ([place] 325-5 Mg) 2 tab PO Q4H PRN PRN Reason: Pain (moderate 4-6) Last Admin: 04/05/17 05:15 Dose: 1 tab Amlodipine Besylate (Norvasc) 5 mg PO DAILY [facility] Last Admin: 04/05/17 07:34 Dose: 5 mg Aspirin (Halfprin) 81 mg PO DAILY [facility] Last Admin: 04/05/17 07:33 Dose: 81 mg Ceftriaxone Sodium (Rocephin) 1 gm IVPUSH Q24H [facility] Last Admin: 04/04/17 22:20 Dose: 1 gm Docusate Sodium (Colace) 100 mg PO BID PRN PRN Reason: Constipation Last Admin: 04/04/17 20:43 Dose: 100 mg Enoxaparin Sodium (Lovenox) 160 mg SUBCUT Q12H [facility] Last Admin: 04/05/17 07:34 Dose: 160 mg Hydrochlorothiazide (Hydrochlorothiazide) 25 mg PO DAILY [facility] Last Admin: 04/05/17 07:34 Dose: 25 mg Vancomycin HCl 1 gm/ Sodium (Chloride) 250 mls @ 167 mls/hr IV Q24H [facility] Last Admin: 04/04/17 20:17 Dose: 167 mls/hr Ibuprofen (Motrin) 800 mg PO Q6H PRN PRN Reason: Pain (mild 1-3) Last Admin: 04/04/17 17:27 Dose: 800 mg Insulin Aspart (Novolog) 0 unit SUBCUT WITHMEALSANDBED [facility] PRN Reason: Protocol Last Admin: 04/05/17 08:02 Dose: 6 units Lisinopril (Prinivil) 20 mg PO DAILY [facility] Last Admin: 04/05/17 07:36 Dose: 20 mg Metformin HCl (Glucophage) 500 mg PO BIDMEALS [facility] Last Admin: 04/05/17 07:33 Dose: 500 mg Morphine Sulfate (Morphine) 2 mg IVPUSH Q2H PRN PRN Reason: Pain (severe 7-10) Ondansetron HCl (Zofran) 4 mg IV Q6H PRN PRN Reason: Nausea/Vomiting Sodium Chloride (Saline Flush) 10 ml FLUSH ASDIRECTED PRN PRN Reason: Keep Vein Open Spironolactone (Aldactone) 25 mg PO DAILY [facility] Last Admin: 04/05/17 07:33 Dose: 25 mg Warfarin Sodium (Coumadin) 2.5 mg PO ONETIME [facility] Last Admin: 04/04/17 11:51 Dose: 2.5 mg Warfarin Sodium (Coumadin) 10 mg PO ONETIME ONE Stop: 04/05/17 12:01 Discontinued Medications Acetaminophen (Tylenol) 1,000 mg PO NOW ONE Stop: 04/02/17 19:11 Last Admin: 04/02/17 19:26 Dose: Not Given Acetaminophen (Tylenol Extra Strength) 1,000 mg PO ONETIME ONE Stop: 04/02/17 19:14 Last Admin: 04/02/17 19:26 Dose: 1,000 mg Amlodipine Besylate (Norvasc) 20 mg PO NOW STA Stop: 04/03/17 01:15 Last Admin: 04/03/17 01:29 Dose: 20 mg Ceftriaxone Sodium (Rocephin) 2 gm IVPUSH ONETIME ONE Stop: 04/02/17 20:02 Last Admin: 04/02/17 20:27 Dose: 2 gm Enoxaparin Sodium (Lovenox) 160 mg SUBCUT Q12H [facility] Last Admin: 04/03/17 11:52 Dose: 160 mg Sodium Chloride (Normal Saline) 1,000 mls @ 1,000 mls/hr IV .BOLUS ONE Stop: 04/02/17 21:05 Last Admin: 04/02/17 20:27 Dose: 250 mls/hr Sodium Chloride (Normal Saline) 1,000 mls @ 75 mls/hr IV ASDIRECTED [facility] Last Admin: 04/04/17 20:45 Dose: 75 mls/hr Vancomycin HCl 1 gm/ Sodium (Chloride) 250 mls @ 167 mls/hr IV ONETIME ONE Stop: 04/03/17 02:38 Last Admin: 04/03/17 01:29 Dose: 167 mls/hr Insulin Human Regular (Novolin R) 10 unit SUBCUT ONETIME ONE PRN Reason: Protocol Stop: 04/03/17 02:55 Last Admin: 04/03/17 03:31 Dose: Not Given Lisinopril (Prinivil) 5 mg PO ONETIME ONE Stop: 04/03/17 01:15 Last Admin: 04/03/17 01:30 Dose: 5 mg Metformin HCl (Glucophage) 500 mg PO BID [facility] Last Admin: 04/04/17 07:41 Dose: 500 mg Vancomycin HCl (Pharmacy To Dose - Vancomycin) 1 dose .XX ONETIME ONE Stop: 04/02/17 20:07 Last Admin: 04/03/17 01:01 Dose: Not Given Warfarin Sodium (Coumadin) 5 mg PO DAILY [facility] Stop: 04/04/17 10:00 Last Admin: 04/04/17 07:41 Dose: 5 mg - Exam General: Alert, Oriented HEENT: Mucous Membr. Moist/[place] Neck: Supple Lungs: Clear to Auscultation, Normal Respiratory Effort Cardiovascular: Regular Rate, Regular Rhythm GI/Abdominal Exam: Normal Bowel Sounds, Soft, Non-Tender Extremities: Pedal Edema (2-3+ pitting in RLE, venous stasis changes.), Increased Warmth, Redness, Other (LLE is red and warm, area relatively unchanged since yesterday; continues to have 3+ pitting edema) Wound/Incisions: Erythema Neurological: No New Focal Deficit Psy/Mental Status: Alert, Normal Affect, Normal Mood - Problem List & Annotations (1) Cellulitis SNOMED Code(s): 382472753 Code(s): L03.90 - CELLULITIS, UNSPECIFIED Status: Acute Current Visit: Yes Qualifiers: Site of cellulitis: extremity Site of cellulitis of extremity: lower extremity Laterality: left Qualified Code(s): L03.116 - Cellulitis of left lower limb (2) DVT (deep venous thrombosis) SNOMED Code(s): 103618036 Code(s): I82.409 - ACUTE EMBOLISM AND THOMBOS UNSP DEEP VN UNSP LOWER EXTREMITY Status: Acute Current Visit: Yes Qualifiers: DVT location: lower extremity Affected thrombotic vein of extremity: popliteal Chronicity: acute Laterality: left Qualified Code(s): I82.432 - Acute embolism and thrombosis of left popliteal vein (3) Fever SNOMED Code(s): 404042863 Code(s): R50.9 - FEVER, UNSPECIFIED Status: Acute Current Visit: Yes Qualifiers: Fever type: due to other condition Qualified Code(s): R50.81 - Fever presenting with conditions classified elsewhere (4) Noncompliance SNOMED Code(s): 5422520 Code(s): Z91.19 - PATIENT'S NONCOMPLIANCE W OTH MEDICAL TREATMENT AND REGIMEN Status: Acute Current Visit: Yes - Problem List Review Problem List Initiated/Reviewed/Updated: Yes - My Orders Last 24 Hours: My Active Orders 04/04/17 08:45 Warfarin [Coumadin] 2.5 mg PO ONETIME 04/04/17 17:30 metFORMIN [Glucophage] 500 mg PO BIDMEALS 04/05/17 09:11 Sodium Chloride 0.9% [Saline Flush] 10 ml FLUSH ASDIRECTED PRN Convert IV to Saline Lock [OM.PC] Routine 04/05/17 12:00 Warfarin [Coumadin] 10 mg PO ONETIME ONE 04/06/17 05:11 C-REACTIVE PROTEIN [CHEM] AM INR,PT,PROTHROMBIN TIME [COAG] DAILY 04/07/17 05:11 INR,PT,PROTHROMBIN TIME [COAG] DAILY 04/08/17 05:11 INR,PT,PROTHROMBIN TIME [COAG] DAILY - Assessment Assessment:: Cellulitis of LLE Thrombus of popliteal vein Fever Noncompliance - Plan Plan:: This patient is a 41 year old male that was admitted from the ER last night. Patient is admitted for cellulitis, fever, renal insufficiency, diabetes uncontrolled. The patient is alert and oriented. His cellulitis has become more circumferential to the left thigh near groin area now. The patient reports that he does feel a little better than what he did last night. THe patient labs yesterday were wbc 76., BUN 20, CR 1.5, Glucose 398, CRP 25.6. Today his labs are wbc 11.4, BUN 16, CR 1.3, Glucose 218, CRP 27.2. We will continue with current treatment plan of abx tx, fluids, and treating blood sugars. 04-04-2017 Patient admits to feeling less pain today. Less discomfort with weight bearing on LLE. Redness is improving per areas marked yesterday. Patient has had fevers this afternoon. Labs noted to have stable WBC of 11.4 to 11.2 INR subtherapeutic on 5 mg of Coumadin at 1.05. No growth noted as of yet per blood cultures. Will continue IV Vancomycin and Rocephin. Continue daily INR. Given 7.5 mg of Coumadin today. Will order dose daily. Continue monitoring blood sugars with insulin per sliding scale. Inappropriate yet for discharge due to swelling, redness, fever. 04-05-2017 Leg status relatively unchanged today. Continues to have edema, redness and warmth. Is tender but admits has less pain. Did run a temp last night of 101. Afebrile this am. Blood sugar 226 this am, improved. WBC stable, down to 9.5 , CRP 22.5. INR only 1.14 yet Saline lock IV. Encourage ambulation. Elevate leg while in bed. Continue daily INR. Coumadin 10 mg today. Continue IV Vanco and Rocephin. Inappropriate for discharge.
[2017-04-05] MEDS ORDERED: Warfarin 5 MG Tab PO ONE (12:00)
[2017-04-05] MEDS: Ibuprofen 200 MG Tab PO PRN (17:33)
[2017-04-05] MEDS: cefTRIAXone 1 GM Vial IVPUSH SCH (20:44)
[2017-04-06] MEDS: Spironolactone 25 MG Tab PO SCH (07:34)
[2017-04-06] MEDS: Enoxaparin 80 MG/0.8 ML Syringe SUBCUT SCH ×2 (07:35→19:49)
[2017-04-06] MEDS: metFORMIN 500 MG Tab PO SCH ×2 (07:35→17:34)
[2017-04-06] MEDS: Hydrochlorothiazide 25 MG Tab PO SCH (07:35)
[2017-04-06] MEDS: Aspirin 81 MG Tab.EC PO SCH (07:35)
[2017-04-06] MEDS: amLODIPine 2.5 MG Tab PO SCH (07:37)
[2017-04-06] MEDS: Lisinopril 20 MG Tab PO SCH (07:37)
[2017-04-06] MEDS: Acetaminophen/HYDROcodone 325-5 MG Tab PO PRN ×3 (07:38→19:45)
[2017-04-06] MEDS: Insulin Aspart 100 Units/ML 3 ML Pen SUBCUT SCH ×4 (08:02→20:53)
[2017-04-06] MEDS ORDERED: Warfarin 5 MG Tab PO ONE (08:23)
[2017-04-06] MEDS ORDERED: Lisinopril 20 MG Tab PO SCH (08:25)
--- NOTE | 2017-04-06 08:54 | PCM.PN ---
- General Info Date of Service: 04/06/17 Admission Dx/Problem (Free Text): Cellulitis of LLE Thrombus to popliteal vein Functional Status: Reports: Pain Controlled, Tolerating Diet, Ambulating - Review of Systems General: Reports: Fever HEENT: Reports: No Symptoms Pulmonary: Reports: No Symptoms Cardiovascular: Reports: No Symptoms Gastrointestinal: Reports: Nausea, Vomiting. Denies: Abdominal Pain Genitourinary: Reports: No Symptoms Musculoskeletal: Reports: Leg Pain Skin: Reports: Other (redness, swelling and discomfort of LLE) Neurological: Reports: No Symptoms - Patient Data Vitals - Most Recent: Last Vital Signs Temp 99.6 F 04/06/17 07:29 Pulse 100 04/06/17 07:29 Resp 20 04/06/17 07:29 BP 177/97 H 04/06/17 07:37 Pulse Ox 95 04/06/17 07:29 Weight - Most Recent: 351 lb 11.2 oz Lab Results Last 24 Hours: Laboratory Results - last 24 hr 04/05/17 04/05/17 04/05/17 Range/Units 11:28 16:58 20:30 PT (9.7-12.3) SEC INR (0.92-1.18) POC Glucose 305 H 222 H 288 H (75-105) mg/dl C-Reactive Protein (0.2-0.8) mg/dL 04/06/17 04/06/17 04/06/17 Range/Units 06:45 06:45 07:28 PT 14.0 H (9.7-12.3) SEC INR 1.29 H (0.92-1.18) POC Glucose 229 H (75-105) mg/dl C-Reactive Protein 22.6 H (0.2-0.8) mg/dL Med Orders - Current: Current Medications Acetaminophen (Tylenol) 650 mg PO Q4H PRN PRN Reason: Pain (Mild 1-3)/fever Last Admin: 04/04/17 04:08 Dose: 650 mg Hydrocodone Bitart/Acetaminophen ([place] 325-5 Mg) 2 tab PO Q4H PRN PRN Reason: Pain (moderate 4-6) Last Admin: 04/06/17 07:38 Dose: 1 tab Amlodipine Besylate (Norvasc) 5 mg PO DAILY [facility] Last Admin: 04/06/17 07:37 Dose: 5 mg Aspirin (Halfprin) 81 mg PO DAILY [facility] Last Admin: 04/06/17 07:35 Dose: 81 mg Ceftriaxone Sodium (Rocephin) 1 gm IVPUSH Q24H [facility] Last Admin: 04/05/17 20:44 Dose: 1 gm Docusate Sodium (Colace) 100 mg PO BID PRN PRN Reason: Constipation Last Admin: 04/04/17 20:43 Dose: 100 mg Enoxaparin Sodium (Lovenox) 160 mg SUBCUT Q12H [facility] Last Admin: 04/06/17 07:35 Dose: 160 mg Hydrochlorothiazide (Hydrochlorothiazide) 25 mg PO DAILY [facility] Last Admin: 04/06/17 07:35 Dose: 25 mg Vancomycin HCl 1 gm/ Sodium (Chloride) 250 mls @ 167 mls/hr IV Q24H [facility] Last Admin: 04/05/17 20:49 Dose: 167 mls/hr Ibuprofen (Motrin) 800 mg PO Q6H PRN PRN Reason: Pain (mild 1-3) Last Admin: 04/05/17 17:33 Dose: 800 mg Insulin Aspart (Novolog) 0 unit SUBCUT WITHMEALSANDBED [facility] PRN Reason: Protocol Last Admin: 04/06/17 08:02 Dose: 6 units Lisinopril (Prinivil) 40 mg PO DAILY [facility] Metformin HCl (Glucophage) 500 mg PO BIDMEALS [facility] Last Admin: 04/06/17 07:35 Dose: 500 mg Morphine Sulfate (Morphine) 2 mg IVPUSH Q2H PRN PRN Reason: Pain (severe 7-10) Ondansetron HCl (Zofran) 4 mg IV Q6H PRN PRN Reason: Nausea/Vomiting Sodium Chloride (Saline Flush) 10 ml FLUSH ASDIRECTED PRN PRN Reason: Keep Vein Open Spironolactone (Aldactone) 25 mg PO DAILY [facility] Last Admin: 04/06/17 07:34 Dose: 25 mg Warfarin Sodium (Coumadin) 2.5 mg PO ONETIME [facility] Last Admin: 04/04/17 11:51 Dose: 2.5 mg Discontinued Medications Acetaminophen (Tylenol) 1,000 mg PO NOW ONE Stop: 04/02/17 19:11 Last Admin: 04/02/17 19:26 Dose: Not Given Acetaminophen (Tylenol Extra Strength) 1,000 mg PO ONETIME ONE Stop: 04/02/17 19:14 Last Admin: 04/02/17 19:26 Dose: 1,000 mg Amlodipine Besylate (Norvasc) 20 mg PO NOW STA Stop: 04/03/17 01:15 Last Admin: 04/03/17 01:29 Dose: 20 mg Ceftriaxone Sodium (Rocephin) 2 gm IVPUSH ONETIME ONE Stop: 04/02/17 20:02 Last Admin: 04/02/17 20:27 Dose: 2 gm Enoxaparin Sodium (Lovenox) 160 mg SUBCUT Q12H [facility] Last Admin: 04/03/17 11:52 Dose: 160 mg Sodium Chloride (Normal Saline) 1,000 mls @ 1,000 mls/hr IV .BOLUS ONE Stop: 04/02/17 21:05 Last Admin: 04/02/17 20:27 Dose: 250 mls/hr Sodium Chloride (Normal Saline) 1,000 mls @ 75 mls/hr IV ASDIRECTED [facility] Last Admin: 04/04/17 20:45 Dose: 75 mls/hr Vancomycin HCl 1 gm/ Sodium (Chloride) 250 mls @ 167 mls/hr IV ONETIME ONE Stop: 04/03/17 02:38 Last Admin: 04/03/17 01:29 Dose: 167 mls/hr Insulin Human Regular (Novolin R) 10 unit SUBCUT ONETIME ONE PRN Reason: Protocol Stop: 04/03/17 02:55 Last Admin: 04/03/17 03:31 Dose: Not Given Lisinopril (Prinivil) 20 mg PO DAILY [facility] Last Admin: 04/06/17 07:37 Dose: 20 mg Lisinopril (Prinivil) 5 mg PO ONETIME ONE Stop: 04/03/17 01:15 Last Admin: 04/03/17 01:30 Dose: 5 mg Metformin HCl (Glucophage) 500 mg PO BID [facility] Last Admin: 04/04/17 07:41 Dose: 500 mg Vancomycin HCl (Pharmacy To Dose - Vancomycin) 1 dose .XX ONETIME ONE Stop: 04/02/17 20:07 Last Admin: 04/03/17 01:01 Dose: Not Given Warfarin Sodium (Coumadin) 5 mg PO DAILY [facility] Stop: 04/04/17 10:00 Last Admin: 04/04/17 07:41 Dose: 5 mg Warfarin Sodium (Coumadin) 10 mg PO ONETIME ONE Stop: 04/05/17 12:01 Last Admin: 04/05/17 12:34 Dose: 10 mg Warfarin Sodium (Coumadin) 10 mg PO ONETIME ONE Stop: 04/06/17 08:24 - Exam General: Alert, Oriented HEENT: Mucous Membr. Moist/[place] Neck: Supple Lungs: Clear to Auscultation, Normal Respiratory Effort Cardiovascular: Regular Rate, Regular Rhythm GI/Abdominal Exam: Normal Bowel Sounds, Soft, Non-Tender Extremities: Pedal Edema, Increased Warmth, Other (left lower extremity is still swollen and red but much improved. ) - Problem List & Annotations (1) Cellulitis SNOMED Code(s): 213243651 Code(s): L03.90 - CELLULITIS, UNSPECIFIED Status: Acute Current Visit: Yes Qualifiers: Site of cellulitis: extremity Site of cellulitis of extremity: lower extremity Laterality: left Qualified Code(s): L03.116 - Cellulitis of left lower limb (2) DVT (deep venous thrombosis) SNOMED Code(s): 005214389 Code(s): I82.409 - ACUTE EMBOLISM AND THOMBOS UNSP DEEP VN UNSP LOWER EXTREMITY Status: Acute Current Visit: Yes Qualifiers: DVT location: lower extremity Affected thrombotic vein of extremity: popliteal Chronicity: acute Laterality: left Qualified Code(s): I82.432 - Acute embolism and thrombosis of left popliteal vein (3) Fever SNOMED Code(s): 571130913 Code(s): R50.9 - FEVER, UNSPECIFIED Status: Acute Current Visit: Yes Qualifiers: Fever type: due to other condition Qualified Code(s): R50.81 - Fever presenting with conditions classified elsewhere (4) Noncompliance SNOMED Code(s): 9462986 Code(s): Z91.19 - PATIENT'S NONCOMPLIANCE W OTH MEDICAL TREATMENT AND REGIMEN Status: Acute Current Visit: Yes - Problem List Review Problem List Initiated/Reviewed/Updated: Yes - My Orders Last 24 Hours: My Active Orders 04/05/17 09:11 Sodium Chloride 0.9% [Saline Flush] 10 ml FLUSH ASDIRECTED PRN Convert IV to Saline Lock [OM.PC] Routine 04/05/17 09:23 Ambulate [RC] PER UNIT ROUTINE 04/06/17 08:24 Consult to Physical Therapy [PT Evaluation and Treatment] [CONS] Routine 04/06/17 08:25 Lisinopril [Prinivil] 40 mg PO DAILY 04/07/17 05:11 INR,PT,PROTHROMBIN TIME [COAG] DAILY 04/08/17 05:11 INR,PT,PROTHROMBIN TIME [COAG] DAILY - Assessment Assessment:: Cellulitis of LLE Thrombus of popliteal vein Fever Noncompliance - Plan Plan:: This patient is a 41 year old male that was admitted from the ER last night. Patient is admitted for cellulitis, fever, renal insufficiency, diabetes uncontrolled. The patient is alert and oriented. His cellulitis has become more circumferential to the left thigh near groin area now. The patient reports that he does feel a little better than what he did last night. THe patient labs yesterday were wbc 76., BUN 20, CR 1.5, Glucose 398, CRP 25.6. Today his labs are wbc 11.4, BUN 16, CR 1.3, Glucose 218, CRP 27.2. We will continue with current treatment plan of abx tx, fluids, and treating blood sugars. 04-04-2017 Patient admits to feeling less pain today. Less discomfort with weight bearing on LLE. Redness is improving per areas marked yesterday. Patient has had fevers this afternoon. Labs noted to have stable WBC of 11.4 to 11.2 INR subtherapeutic on 5 mg of Coumadin at 1.05. No growth noted as of yet per blood cultures. Will continue IV Vancomycin and Rocephin. Continue daily INR. Given 7.5 mg of Coumadin today. Will order dose daily. Continue monitoring blood sugars with insulin per sliding scale. Inappropriate yet for discharge due to swelling, redness, fever. 04-05-2017 Leg status relatively unchanged today. Continues to have edema, redness and warmth. Is tender but admits has less pain. Did run a temp last night of 101. Afebrile this am. Blood sugar 226 this am, improved. WBC stable, down to 9.5 , CRP 22.5. INR only 1.14 yet Saline lock IV. Encourage ambulation. Elevate leg while in bed. Continue daily INR. Coumadin 10 mg today. Continue IV Vanco and Rocephin. Inappropriate for discharge. 04-06-2017 Patient feeling nauseated this am. Did vomit after eating breakfast, believes it is from the pain medication. Leg is improving, much less redness and swelling. Did ambulate yesterday but states this am, doing so is causing more pain. Does elevate the leg while in bed. INR is 1.29. CRP same at 22.7. Temp 99.6 this am, up over 100 last evening again. Blood pressure persistently been high. Will increase Lisinopril to 40 mg daily. Coumadin 10 mg today. Repeat INR and CRP tomorrow. Have PT ambulate him more today, cover him with pain meds in order to tolerate as needed. Possible discharge home tomorrow.
[2017-04-06] MEDS ORDERED: Lisinopril 20 MG Tab PO ONE (09:06)
[2017-04-06] MEDS: cefTRIAXone 1 GM Vial IVPUSH SCH (19:55)
[2017-04-07] MEDS: Ibuprofen 200 MG Tab PO PRN ×3 (02:15→20:40)
[2017-04-07] MEDS: Acetaminophen/HYDROcodone 325-5 MG Tab PO PRN ×2 (02:16→16:52)
[2017-04-07] MEDS: Enoxaparin 80 MG/0.8 ML Syringe SUBCUT SCH ×2 (07:48→20:39)
[2017-04-07] MEDS: Spironolactone 25 MG Tab PO SCH (07:49)
[2017-04-07] MEDS: Hydrochlorothiazide 25 MG Tab PO SCH (07:50)
[2017-04-07] MEDS: amLODIPine 2.5 MG Tab PO SCH (07:50)
[2017-04-07] MEDS: metFORMIN 500 MG Tab PO SCH ×2 (07:50→16:52)
[2017-04-07] MEDS: Aspirin 81 MG Tab.EC PO SCH (07:50)
[2017-04-07] MEDS: Lisinopril 20 MG Tab PO SCH (07:51)
[2017-04-07] MEDS: Insulin Aspart 100 Units/ML 3 ML Pen SUBCUT SCH ×4 (07:52→20:50)
[2017-04-07 09:11] LABS: CHLORIDE,CL 96 mEq/L (98-106); SODIUM,NA 133 mEq/L (136-145)
[2017-04-07] MEDS ORDERED: Warfarin 5 MG Tab PO ONE (12:17)
--- NOTE | 2017-04-07 13:19 | PCM.PN ---
- General Info Date of Service: 04/07/17 Admission Dx/Problem (Free Text): Cellulitis of LLE Thrombus to popliteal vein Functional Status: Reports: Pain Controlled, Tolerating Diet, Ambulating - Review of Systems General: Reports: Fever, Weakness. Denies: Fatigue HEENT: Reports: No Symptoms Pulmonary: Denies: Shortness of Breath, Cough, Wheezing Cardiovascular: Reports: Edema. Denies: Chest Pain, Lightheadedness Gastrointestinal: Reports: No Symptoms Genitourinary: Reports: No Symptoms Musculoskeletal: Reports: Leg Pain Skin: Reports: Other (redness and swelling of LLE) Neurological: Reports: No Symptoms Psychiatric: Reports: No Symptoms - Patient Data Vitals - Most Recent: Last Vital Signs Temp 98.6 F 04/07/17 11:37 Pulse 92 04/07/17 11:37 Resp 18 04/07/17 11:37 BP 151/84 H 04/07/17 11:37 Pulse Ox 98 04/07/17 11:37 Weight - Most Recent: 351 lb 11.2 oz I&O - Last 24 Hours: Intake & Output 04/06/17 04/07/17 04/07/17 22:59 06:59 14:59 Intake Total 300 Balance 300 Lab Results Last 24 Hours: Laboratory Results - last 24 hr 04/06/17 04/06/17 04/07/17 Range/Units 17:24 20:24 07:00 WBC (5.0-10.0) 10^3/uL RBC (4.50-6.00) 10^6/uL Hgb (14.0-18.0) g/dL Hct (40.0-54.0) % MCV (82.0-94.0) fL MCH (27.0-32.0) pg MCHC (33.0-38.0) g/dL RDW Coeff of Mo (11.0-15.0) % Plt Count (150-400) 10^3/uL Add Manual Diff Neutrophils % (Manual) (35-85) % Band Neutrophils % (0-5) % Lymphocytes % (Manual) (21-55) % Monocytes % (Manual) (2-12) % Absolute Neutrophils (1.80-7.00) 10^3/uL Lymphocytes # (Manual) (1.00-4.80) 10^3/uL Monocytes # (Manual) (0.00-0.80) 10^3/uL PT 17.3 H (9.7-12.3) SEC INR 1.58 H (0.92-1.18) Sodium (136-145) mEq/L Potassium (3.5-5.0) mEq/L Chloride (98-106) mEq/L Carbon Dioxide (21-32) mmol/L BUN (7-18) mg/dL Creatinine (0.7-1.3) mg/dL Est Cr Clr Drug Dosing mL/min Estimated GFR (MDRD) (>=60) mL/min Glucose (75-99) mg/dL POC Glucose 275 H 274 H (75-105) mg/dl Calcium (8.4-10.1) mg/dL C-Reactive Protein (0.2-0.8) mg/dL 04/07/17 04/07/17 04/07/17 Range/Units 07:27 08:50 08:50 WBC 9.9 (5.0-10.0) 10^3/uL RBC 4.83 (4.50-6.00) 10^6/uL Hgb 12.8 L (14.0-18.0) g/dL Hct 39.7 L (40.0-54.0) % MCV 82.2 (82.0-94.0) fL MCH 26.5 L (27.0-32.0) pg MCHC 32.2 L (33.0-38.0) g/dL RDW Coeff of Mo 14.0 (11.0-15.0) % Plt Count 259 (150-400) 10^3/uL Add Manual Diff Yes Neutrophils % (Manual) 79 (35-85) % Band Neutrophils % 3 (0-5) % Lymphocytes % (Manual) 8 L (21-55) % Monocytes % (Manual) 10 (2-12) % Absolute Neutrophils 8.12 H (1.80-7.00) 10^3/uL Lymphocytes # (Manual) 0.79 L (1.00-4.80) 10^3/uL Monocytes # (Manual) 0.99 H (0.00-0.80) 10^3/uL PT (9.7-12.3) SEC INR (0.92-1.18) Sodium 133 L (136-145) mEq/L Potassium 4.0 (3.5-5.0) mEq/L Chloride 96 L (98-106) mEq/L Carbon Dioxide 32 (21-32) mmol/L BUN 17 (7-18) mg/dL Creatinine 1.3 (0.7-1.3) mg/dL Est Cr Clr Drug Dosing 89.95 mL/min Estimated GFR (MDRD) > 60 (>=60) mL/min Glucose 264 H (75-99) mg/dL POC Glucose 273 H (75-105) mg/dl Calcium 8.2 L (8.4-10.1) mg/dL C-Reactive Protein 17.4 H (0.2-0.8) mg/dL 04/07/17 Range/Units 11:24 WBC (5.0-10.0) 10^3/uL RBC (4.50-6.00) 10^6/uL Hgb (14.0-18.0) g/dL Hct (40.0-54.0) % MCV (82.0-94.0) fL MCH (27.0-32.0) pg MCHC (33.0-38.0) g/dL RDW Coeff of Mo (11.0-15.0) % Plt Count (150-400) 10^3/uL Add Manual Diff Neutrophils % (Manual) (35-85) % Band Neutrophils % (0-5) % Lymphocytes % (Manual) (21-55) % Monocytes % (Manual) (2-12) % Absolute Neutrophils (1.80-7.00) 10^3/uL Lymphocytes # (Manual) (1.00-4.80) 10^3/uL Monocytes # (Manual) (0.00-0.80) 10^3/uL PT (9.7-12.3) SEC INR (0.92-1.18) Sodium (136-145) mEq/L Potassium (3.5-5.0) mEq/L Chloride (98-106) mEq/L Carbon Dioxide (21-32) mmol/L BUN (7-18) mg/dL Creatinine (0.7-1.3) mg/dL Est Cr Clr Drug Dosing mL/min Estimated GFR (MDRD) (>=60) mL/min Glucose (75-99) mg/dL POC Glucose 293 H (75-105) mg/dl Calcium (8.4-10.1) mg/dL C-Reactive Protein (0.2-0.8) mg/dL Med Orders - Current: Current Medications Acetaminophen (Tylenol) 650 mg PO Q4H PRN PRN Reason: Pain (Mild 1-3)/fever Last Admin: 04/04/17 04:08 Dose: 650 mg Hydrocodone Bitart/Acetaminophen ([place] 325-5 Mg) 2 tab PO Q4H PRN PRN Reason: Pain (moderate 4-6) Last Admin: 04/07/17 02:16 Dose: 1 tab Amlodipine Besylate (Norvasc) 5 mg PO DAILY [facility] Last Admin: 04/07/17 07:50 Dose: 5 mg Aspirin (Halfprin) 81 mg PO DAILY [facility] Last Admin: 04/07/17 07:50 Dose: 81 mg Ceftriaxone Sodium (Rocephin) 1 gm IVPUSH Q24H [facility] Last Admin: 04/06/17 19:55 Dose: 1 gm Docusate Sodium (Colace) 100 mg PO BID PRN PRN Reason: Constipation Last Admin: 04/04/17 20:43 Dose: 100 mg Enoxaparin Sodium (Lovenox) 160 mg SUBCUT Q12H [facility] Last Admin: 04/07/17 07:48 Dose: 160 mg Hydrochlorothiazide (Hydrochlorothiazide) 25 mg PO DAILY [facility] Last Admin: 04/07/17 07:50 Dose: 25 mg Vancomycin HCl 1 gm/ Sodium (Chloride) 250 mls @ 167 mls/hr IV Q24H [facility] Last Admin: 04/06/17 19:51 Dose: 167 mls/hr Ibuprofen (Motrin) 800 mg PO Q6H PRN PRN Reason: Pain (mild 1-3) Last Admin: 04/07/17 10:54 Dose: 800 mg Insulin Aspart (Novolog) 0 unit SUBCUT WITHMEALSANDBED [facility] PRN Reason: Protocol Last Admin: 04/07/17 12:04 Dose: 9 units Lisinopril (Prinivil) 40 mg PO DAILY [facility] Last Admin: 04/07/17 07:51 Dose: 40 mg Metformin HCl (Glucophage) 500 mg PO BIDMEALS [facility] Last Admin: 04/07/17 07:50 Dose: 500 mg Morphine Sulfate (Morphine) 2 mg IVPUSH Q2H PRN PRN Reason: Pain (severe 7-10) Last Admin: 04/06/17 08:58 Dose: 2 mg Ondansetron HCl (Zofran) 4 mg IV Q6H PRN PRN Reason: Nausea/Vomiting Sodium Chloride (Saline Flush) 10 ml FLUSH ASDIRECTED PRN PRN Reason: Keep Vein Open Spironolactone (Aldactone) 25 mg PO DAILY [facility] Last Admin: 04/07/17 07:49 Dose: 25 mg Discontinued Medications Acetaminophen (Tylenol) 1,000 mg PO NOW ONE Stop: 04/02/17 19:11 Last Admin: 04/02/17 19:26 Dose: Not Given Acetaminophen (Tylenol Extra Strength) 1,000 mg PO ONETIME ONE Stop: 04/02/17 19:14 Last Admin: 04/02/17 19:26 Dose: 1,000 mg Amlodipine Besylate (Norvasc) 20 mg PO NOW ST[facility] Stop: 04/03/17 01:15 Last Admin: 04/03/17 01:29 Dose: 20 mg Ceftriaxone Sodium (Rocephin) 2 gm IVPUSH ONETIME ONE Stop: 04/02/17 20:02 Last Admin: 04/02/17 20:27 Dose: 2 gm Enoxaparin Sodium (Lovenox) 160 mg SUBCUT Q12H [facility] Last Admin: 04/03/17 11:52 Dose: 160 mg Sodium Chloride (Normal Saline) 1,000 mls @ 1,000 mls/hr IV .BOLUS ONE Stop: 04/02/17 21:05 Last Admin: 04/02/17 20:27 Dose: 250 mls/hr Sodium Chloride (Normal Saline) 1,000 mls @ 75 mls/hr IV ASDIRECTED [facility] Last Admin: 04/04/17 20:45 Dose: 75 mls/hr Vancomycin HCl 1 gm/ Sodium (Chloride) 250 mls @ 167 mls/hr IV ONETIME ONE Stop: 04/03/17 02:38 Last Admin: 04/03/17 01:29 Dose: 167 mls/hr Insulin Human Regular (Novolin R) 10 unit SUBCUT ONETIME ONE PRN Reason: Protocol Stop: 04/03/17 02:55 Last Admin: 04/03/17 03:31 Dose: Not Given Lisinopril (Prinivil) 20 mg PO DAILY [facility] Last Admin: 04/06/17 07:37 Dose: 20 mg Lisinopril (Prinivil) 5 mg PO ONETIME ONE Stop: 04/03/17 01:15 Last Admin: 04/03/17 01:30 Dose: 5 mg Lisinopril (Prinivil) 40 mg PO DAILY [facility] Lisinopril (Prinivil) 20 mg PO NOW ONE Stop: 04/06/17 09:07 Last Admin: 04/06/17 09:22 Dose: 20 mg Metformin HCl (Glucophage) 500 mg PO BID [facility] Last Admin: 04/04/17 07:41 Dose: 500 mg Vancomycin HCl (Pharmacy To Dose - Vancomycin) 1 dose .XX ONETIME ONE Stop: 04/02/17 20:07 Last Admin: 04/03/17 01:01 Dose: Not Given Warfarin Sodium (Coumadin) 5 mg PO DAILY [facility] Stop: 04/04/17 10:00 Last Admin: 04/04/17 07:41 Dose: 5 mg Warfarin Sodium (Coumadin) 2.5 mg PO ONETIME [facility] Last Admin: 04/04/17 11:51 Dose: 2.5 mg Warfarin Sodium (Coumadin) 10 mg PO ONETIME ONE Stop: 04/05/17 12:01 Last Admin: 04/05/17 12:34 Dose: 10 mg Warfarin Sodium (Coumadin) 10 mg PO ONETIME ONE Stop: 04/06/17 08:24 Last Admin: 04/06/17 08:57 Dose: 10 mg Warfarin Sodium (Coumadin) 10 mg PO ONETIME ONE Stop: 04/07/17 12:18 Last Admin: 04/07/17 12:41 Dose: 10 mg - Exam General: Alert, Oriented HEENT: Mucous Membr. Moist/[place] Neck: Supple Lungs: Clear to Auscultation, Normal Respiratory Effort Cardiovascular: Regular Rate, Regular Rhythm GI/Abdominal Exam: Normal Bowel Sounds, Soft, Non-Tender Extremities: Pedal Edema, Leg Pain, Redness, Other (LLE continues to be red but is slowly improving. Less swelling.) Skin: Warm Wound/Incisions: Erythema Improving Neurological: No New Focal Deficit Psy/Mental Status: Alert, Normal Affect, Normal Mood - Problem List & Annotations (1) Cellulitis SNOMED Code(s): 741829347 Code(s): L03.90 - CELLULITIS, UNSPECIFIED Status: Acute Priority: High Current Visit: Yes Qualifiers: Site of cellulitis: extremity Site of cellulitis of extremity: lower extremity Laterality: left Qualified Code(s): L03.116 - Cellulitis of left lower limb (2) DVT (deep venous thrombosis) SNOMED Code(s): 875030779 Code(s): I82.409 - ACUTE EMBOLISM AND THOMBOS UNSP DEEP VN UNSP LOWER EXTREMITY Status: Acute Priority: High Current Visit: Yes Qualifiers: DVT location: lower extremity Affected thrombotic vein of extremity: popliteal Chronicity: acute Laterality: left Qualified Code(s): I82.432 - Acute embolism and thrombosis of left popliteal vein (3) Fever SNOMED Code(s): 468206501 Code(s): R50.9 - FEVER, UNSPECIFIED Status: Acute Priority: Medium Current Visit: Yes Qualifiers: Fever type: due to other condition Qualified Code(s): R50.81 - Fever presenting with conditions classified elsewhere (4) Noncompliance SNOMED Code(s): 6160475 Code(s): Z91.19 - PATIENT'S NONCOMPLIANCE W OTH MEDICAL TREATMENT AND REGIMEN Status: Acute Priority: Medium Current Visit: Yes - Problem List Review Problem List Initiated/Reviewed/Updated: Yes - My Orders Last 24 Hours: My Active Orders 04/07/17 08:00 Lisinopril [Prinivil] 40 mg PO DAILY 04/08/17 05:11 INR,PT,PROTHROMBIN TIME [COAG] DAILY - Assessment Assessment:: Cellulitis of LLE Thrombus of popliteal vein Fever Noncompliance - Plan Plan:: This patient is a 41 year old male that was admitted from the ER last night. Patient is admitted for cellulitis, fever, renal insufficiency, diabetes uncontrolled. The patient is alert and oriented. His cellulitis has become more circumferential to the left thigh near groin area now. The patient reports that he does feel a little better than what he did last night. THe patient labs yesterday were wbc 76., BUN 20, CR 1.5, Glucose 398, CRP 25.6. Today his labs are wbc 11.4, BUN 16, CR 1.3, Glucose 218, CRP 27.2. We will continue with current treatment plan of abx tx, fluids, and treating blood sugars. 04-04-2017 Patient admits to feeling less pain today. Less discomfort with weight bearing on LLE. Redness is improving per areas marked yesterday. Patient has had fevers this afternoon. Labs noted to have stable WBC of 11.4 to 11.2 INR subtherapeutic on 5 mg of Coumadin at 1.05. No growth noted as of yet per blood cultures. Will continue IV Vancomycin and Rocephin. Continue daily INR. Given 7.5 mg of Coumadin today. Will order dose daily. Continue monitoring blood sugars with insulin per sliding scale. Inappropriate yet for discharge due to swelling, redness, fever. 04-05-2017 Leg status relatively unchanged today. Continues to have edema, redness and warmth. Is tender but admits has less pain. Did run a temp last night of 101. Afebrile this am. Blood sugar 226 this am, improved. WBC stable, down to 9.5 , CRP 22.5. INR only 1.14 yet Saline lock IV. Encourage ambulation. Elevate leg while in bed. Continue daily INR. Coumadin 10 mg today. Continue IV Vanco and Rocephin. Inappropriate for discharge. 04-06-2017 Patient feeling nauseated this am. Did vomit after eating breakfast, believes it is from the pain medication. Leg is improving, much less redness and swelling. Did ambulate yesterday but states this am, doing so is causing more pain. Does elevate the leg while in bed. INR is 1.29. CRP same at 22.7. Temp 99.6 this am, up over 100 last evening again. Blood pressure persistently been high. Will increase Lisinopril to 40 mg daily. Coumadin 10 mg today. Repeat INR and CRP tomorrow. Have PT ambulate him more today, cover him with pain meds in order to tolerate as needed. Possible discharge home tomorrow. 04-07-2017 Patient states is having a much better day today. Less pain with ambulation. Swelling and redness is improving. Low grade temps last night. Blood sugars still high at times. Blood pressure high yet. Had increased Lisinopril yesterday. Labs show improvement of his CRP to 17.4. INR now 1.58. Will continue to monitor blood pressure. Will hold off on any medication changes for this and see how it develops over the next 24 hours. Give Coumadin 10 mg again today. Continue IV Vanco and Rocephin. Questionable swing bed tomorrow as redness and swelling improved but concerning yet.
[2017-04-07] MEDS: cefTRIAXone 1 GM Vial IVPUSH SCH (20:39)
[2017-04-08 07:54] VITALS: BP 192/104
[2017-04-08] MEDS: Insulin Aspart 100 Units/ML 3 ML Pen SUBCUT SCH (07:58)
[2017-04-08] MEDS: Ibuprofen 200 MG Tab PO PRN (07:59)
[2017-04-08] MEDS: Hydrochlorothiazide 25 MG Tab PO SCH (08:02)
[2017-04-08] MEDS: amLODIPine 2.5 MG Tab PO SCH (08:02)
[2017-04-08] MEDS: metFORMIN 500 MG Tab PO SCH (08:03)
[2017-04-08] MEDS: Spironolactone 25 MG Tab PO SCH (08:03)
[2017-04-08] MEDS: Lisinopril 20 MG Tab PO SCH (08:03)
[2017-04-08] MEDS: Aspirin 81 MG Tab.EC PO SCH (08:03)
[2017-04-08] MEDS: Enoxaparin 80 MG/0.8 ML Syringe SUBCUT SCH (08:04)
== END 2017-04-08 10:16 | disposition home or self-care (01) | DRG 383 ==
LOC: CC.ED 19:01 → CC.MS 21:00 → UNDOADMIN 21:00 → CC.MS 04-03 00:09
PROVIDERS: ADMIT Nurse Practitioner; ATTEND Family Medicine
DX: L03.116 Cellulitis of left lower limb (principal); M79.662 Pain in left lower leg; Z91.14 Patient's other noncompliance with medication regimen; I82.432 Acute embolism and thrombosis of left popliteal vein; Z79.82 Long term (current) use of aspirin; Z79.84 Long term (current) use of oral hypoglycemic drugs; E66.9 Obesity, unspecified; Z68.41 Body mass index [BMI] 40.0-44.9, adult; R50.81 Fever presenting with conditions classified elsewhere; Z79.4 Long term (current) use of insulin; I12.9 Hypertensive chronic kidney disease with stage 1 through stage 4 chronic kidney disease, or unspecified chronic kidney disease; E11.22 Type 2 diabetes mellitus with diabetic chronic kidney disease; E11.65 Type 2 diabetes mellitus with hyperglycemia; N18.9 Chronic kidney disease, unspecified
CPT/HCPCS: 36415; 80048; 80053; 82962; 83605; 83880; 85025; 85610; 86140; 87040; 93971-LT; 94761; 96374; 97110-GP; 97161-GP; 99284; A9270-GY; J0696; J1650; J1815-GY; J2270; J3370; J7030; J7050

== ENCOUNTER 2017-04-08 10:17 | Inpatient (IN) | payer BC ==
[2017-04-08] MEDS ORDERED: Morphine 2 MG/ML Syringe IVPUSH PRN (12:04)
[2017-04-08] MEDS ORDERED: Ondansetron 4 MG/2 ML SDV IV PRN (12:04)
[2017-04-08] MEDS ORDERED: Sodium Chloride 0.9% 10 ML Syringe FLUSH PRN (12:04)
[2017-04-08] MEDS ORDERED: Docusate Sodium 100 MG Cap PO PRN (12:04)
[2017-04-08] MEDS: Warfarin 5 MG Tab PO SCH (12:42)
[2017-04-08] MEDS: Insulin Aspart 100 Units/ML 3 ML Pen SUBCUT SCH ×3 (12:43→20:36)
[2017-04-08] MEDS: metFORMIN 500 MG Tab PO SCH (18:24)
[2017-04-08] MEDS: Acetaminophen/HYDROcodone 325-5 MG Tab PO PRN (18:33)
[2017-04-08] MEDS: Enoxaparin 80 MG/0.8 ML Syringe SUBCUT SCH (20:23)
[2017-04-08] MEDS: cefTRIAXone 1 GM Vial IVPUSH SCH (20:24)
--- NOTE | 2017-04-08 21:56 | PCM.DCSUM1 ---
Discharge Summary - Hospital Course Free Text/Narrative:: Patient presented to ED with complaints of LLE pain, redness and swelling. Patient had been experiencing fevers, chills and diaphoresis. Has a history of HTN and diabetes but has not been taking any of his meds for the last 6 months. Not following up with any routine care. He presented with a fever of 101, Initial WBC of 7.6, CRP of 25.6. Blood sugar 398. His proBNP 6175. Was found to have cellulitis in his left lower extremity. Ultrasound was done that did show a popliteal clot. Was admitted and started on IV Vanco and Rocephin. Blood cultures obtained. - Discharge Data Discharge Date: 04/08/17 Discharge Disposition: DC/Tfer W/I Hosp To [place] [id number] Condition: Fair - Patient Summary/Data Complications: none Consults: Consultations 04/08/17 12:04 Consult to Physical Therapy [PT Evaluation and Treatment] [CONS] Routine Hospital Course: Patient has had slow progress with his discomfort in his leg. Swelling has significantly improved. Redness improved. Does have a localized area on the rojas that was open and now is fluid filled. Patient did continue to spike fevers nearly every night since admission. Is taking pain meds for his leg pain. Encouraged ambulation and he has now been up and around with nursing and PT in the halls. Blood pressure has been high much of the time. Currently started back on his 3 blood pressure pills and increased his Lisinopril. WBC did peak at 11.4 but now stable and normal. CRP has improved down to 17. Blood sugars in better control on his insulin. Transferred to [facility] for ongoing IV Vancomycin and Rocephin. Receiving Coumadin and dose determined by daily INR. - Discharge Plan Home Medications: Home Meds Hydrochlorothiazide 25 mg PO DAILY 11/06/15 [History] Lisinopril 20 mg PO DAILY 11/06/15 [History] Spironolactone [Aldactone] 25 mg PO DAILY 11/06/15 [History] metFORMIN HCl [Metformin HCl] 500 mg PO BID 11/06/15 [History] Aspirin [Halfprin] 81 mg PO DAILY 04/02/17 [History] amLODIPine [Norvasc] 5 mg PO DAILY 04/02/17 [History] - General Info Date of Service: 04/08/17 Admission Dx/Problem (Free Text: Cellulitis of LLE Popliteal thrombus Functional Status: Reports: Pain Controlled (with pain meds), Tolerating Diet, Ambulating - Review of Systems General: Reports: Fever, Weakness, Fatigue, Malaise HEENT: Reports: No Symptoms Pulmonary: Denies: Shortness of Breath, Cough, Wheezing Cardiovascular: Reports: Edema. Denies: Chest Pain, Lightheadedness Gastrointestinal: Denies: Abdominal Pain, Constipation, Diarrhea, Nausea, Vomiting Genitourinary: Reports: No Symptoms Musculoskeletal: Reports: Leg Pain Skin: Reports: Other (ongoing redness to LLE) Neurological: Reports: No Symptoms Psychiatric: Reports: No Symptoms - Patient Data Vitals - Most Recent: Last Vital Signs Temp 98.5 F 04/08/17 16:00 Pulse 103 H 04/08/17 16:00 Resp 18 04/08/17 16:00 BP 180/100 H 04/08/17 16:00 Pulse Ox 100 04/08/17 16:00 Weight - Most Recent: 333 lb 6.4 oz I&O - Last 24 hours: Intake & Output 04/08/17 04/08/17 04/08/17 06:59 14:59 22:59 Intake Total 400 Balance 400 Lab Results - Last 24 hrs: Laboratory Results - last 24 hr 04/08/17 04/08/17 Range/Units 17:17 20:20 POC Glucose 181 H 303 H (75-105) mg/dl Med Orders - Current: Current Medications Acetaminophen (Tylenol) 650 mg PO Q4H PRN PRN Reason: Pain (Mild 1-3)/fever Hydrocodone Bitart/Acetaminophen ([place] 325-5 Mg) 2 tab PO Q4H PRN PRN Reason: Pain (moderate 4-6) Last Admin: 04/08/17 18:33 Dose: 2 tab Amlodipine Besylate (Norvasc) 5 mg PO DAILY [facility] Aspirin (Halfprin) 81 mg PO DAILY [facility] Ceftriaxone Sodium (Rocephin) 1 gm IVPUSH Q24H [facility] Last Admin: 04/08/17 20:24 Dose: 1 gm Docusate Sodium (Colace) 100 mg PO BID PRN PRN Reason: Constipation Enoxaparin Sodium (Lovenox) 160 mg SUBCUT Q12H [facility] Last Admin: 04/08/17 20:23 Dose: 160 mg Hydrochlorothiazide (Hydrochlorothiazide) 25 mg PO DAILY [facility] Vancomycin HCl 1 gm/ Sodium (Chloride) 250 mls @ 167 mls/hr IV Q24H [facility] Last Admin: 04/08/17 20:24 Dose: 167 mls/hr Ibuprofen (Motrin) 800 mg PO Q6H PRN PRN Reason: Pain (mild 1-3) Insulin Aspart (Novolog) 0 unit SUBCUT WITHMEALSANDBED [facility] PRN Reason: Protocol Last Admin: 04/08/17 20:36 Dose: 12 unit Lisinopril (Prinivil) 40 mg PO DAILY [facility] Metformin HCl (Glucophage) 500 mg PO BIDMEALS [facility] Last Admin: 04/08/17 18:24 Dose: 500 mg Morphine Sulfate (Morphine) 2 mg IVPUSH Q2H PRN PRN Reason: Pain (severe 7-10) Ondansetron HCl (Zofran) 4 mg IV Q6H PRN PRN Reason: Nausea/Vomiting Sodium Chloride (Saline Flush) 10 ml FLUSH ASDIRECTED PRN PRN Reason: Keep Vein Open Spironolactone (Aldactone) 25 mg PO DAILY [facility] Warfarin Sodium (Coumadin) 10 mg PO DAILY@1200 [facility] Last Admin: 04/08/17 12:42 Dose: 10 mg - Exam General: Reports: Alert, Oriented HEENT: Reports: Mucous Membr. Moist/[place] Neck: Reports: Supple Lungs: Reports: Clear to Auscultation, Normal Respiratory Effort Cardiovascular: Reports: Regular Rate, Regular Rhythm GI/Abdominal Exam: Normal Bowel Sounds, Soft, Non-Tender Extremities: Pedal Edema, Increased Warmth, Other (LLE does continue to be warm and red but is improved since admission. Edema is much improved) Wound/Incisions: Reports: Erythema Improving Neurological: Reports: No New Focal Deficit Psy/Mental Status: Reports: Alert, Normal Affect, Normal Mood *Q Meaningful Use (DIS) - VTE *Q VTE Criteria *Q: - Stroke *Q Stroke Criteria *Q: - AMI *Q AMI Criteria *Q:
[2017-04-09] MEDS: Ibuprofen 200 MG Tab PO PRN (02:39)
[2017-04-09] MEDS: Insulin Aspart 100 Units/ML 3 ML Pen SUBCUT SCH ×4 (08:09→21:39)
[2017-04-09] MEDS: amLODIPine 2.5 MG Tab PO SCH (08:10)
[2017-04-09] MEDS: metFORMIN 500 MG Tab PO SCH ×2 (08:11→17:19)
[2017-04-09] MEDS: Spironolactone 25 MG Tab PO SCH (08:12)
[2017-04-09] MEDS: Hydrochlorothiazide 25 MG Tab PO SCH (08:12)
[2017-04-09] MEDS: Aspirin 81 MG Tab.EC PO SCH (08:13)
[2017-04-09] MEDS: Lisinopril 20 MG Tab PO SCH (08:14)
[2017-04-09] MEDS: Enoxaparin 80 MG/0.8 ML Syringe SUBCUT SCH ×2 (09:38→19:55)
[2017-04-09] MEDS ORDERED: Enoxaparin 60 MG/0.6 ML Syringe ONE ×2 (09:49→19:51)
[2017-04-09] MEDS ORDERED: Enoxaparin 100 MG/1 ML Syringe ONE ×2 (09:49→19:50)
[2017-04-09] MEDS: Acetaminophen 325 MG Tab PO PRN ×3 (11:00→19:54)
[2017-04-09] MEDS: Warfarin 5 MG Tab PO SCH (12:08)
[2017-04-09] MEDS: cefTRIAXone 1 GM Vial IVPUSH SCH (20:00)
[2017-04-09] MEDS ORDERED: cloNIDine 0.1 MG Tab PO ONE (21:11)
[2017-04-10] MEDS: Ibuprofen 200 MG Tab PO PRN (01:11)
[2017-04-10] MEDS: amLODIPine 2.5 MG Tab PO SCH (07:25)
[2017-04-10] MEDS: Hydrochlorothiazide 25 MG Tab PO SCH (07:25)
[2017-04-10] MEDS: Aspirin 81 MG Tab.EC PO SCH (07:25)
[2017-04-10] MEDS: metFORMIN 500 MG Tab PO SCH ×2 (07:25→17:23)
[2017-04-10] MEDS: Spironolactone 25 MG Tab PO SCH (07:25)
[2017-04-10] MEDS: Lisinopril 20 MG Tab PO SCH (07:26)
[2017-04-10] MEDS: Insulin Aspart 100 Units/ML 3 ML Pen SUBCUT SCH ×3 (07:27→17:23)
[2017-04-10] MEDS: Enoxaparin 80 MG/0.8 ML Syringe SUBCUT SCH (08:46)
[2017-04-10] MEDS: Acetaminophen 325 MG Tab PO PRN (11:18)
[2017-04-10] MEDS: Warfarin 5 MG Tab PO SCH (11:52)
[2017-04-10] MEDS: Acetaminophen/HYDROcodone 325-5 MG Tab PO PRN ×2 (15:57→21:00)
[2017-04-10] MEDS: cefTRIAXone 1 GM Vial IVPUSH SCH (20:58)
[2017-04-11] MEDS: Insulin Aspart 100 Units/ML 3 ML Pen SUBCUT SCH ×5 (00:15→20:55)
[2017-04-11] MEDS: amLODIPine 2.5 MG Tab PO SCH (08:10)
[2017-04-11] MEDS: Lisinopril 20 MG Tab PO SCH (08:10)
[2017-04-11] MEDS: Acetaminophen/HYDROcodone 325-5 MG Tab PO PRN ×2 (08:10→14:07)
[2017-04-11] MEDS: Aspirin 81 MG Tab.EC PO SCH (08:10)
[2017-04-11] MEDS: metFORMIN 500 MG Tab PO SCH ×2 (08:10→17:40)
[2017-04-11] MEDS: Hydrochlorothiazide 25 MG Tab PO SCH (08:10)
[2017-04-11] MEDS: Spironolactone 25 MG Tab PO SCH (08:11)
[2017-04-11] MEDS: Warfarin 5 MG Tab PO SCH (11:26)
[2017-04-11] MEDS: Metoprolol Succinate 25 MG Tab.ER PO SCH (11:26)
[2017-04-11] MEDS: Ibuprofen 200 MG Tab PO PRN (19:55)
[2017-04-11] MEDS: cefTRIAXone 1 GM Vial IVPUSH SCH (20:00)
[2017-04-12] MEDS: Lisinopril 20 MG Tab PO SCH (08:33)
[2017-04-12] MEDS: Aspirin 81 MG Tab.EC PO SCH (08:34)
[2017-04-12] MEDS: Hydrochlorothiazide 25 MG Tab PO SCH (08:34)
[2017-04-12] MEDS: metFORMIN 500 MG Tab PO SCH (08:34)
[2017-04-12] MEDS: Insulin Aspart 100 Units/ML 3 ML Pen SUBCUT SCH (08:35)
[2017-04-12 08:36] VITALS: BP 161/89
[2017-04-12] MEDS: Metoprolol Succinate 25 MG Tab.ER PO SCH (08:36)
[2017-04-12] MEDS: amLODIPine 2.5 MG Tab PO SCH (09:26)
--- NOTE | 2017-04-13 11:00 | PCM.DCSUM1 ---
Discharge Summary - Hospital Course Free Text/Narrative:: Patient admitted to swing bed for Cellulitis for ongoing IV antibiotics with Vanco and Rocephin, PT and monitoring INR due to starting Coumadin for DVT. Patient has been noncompliant with all meds prior to his acute admission, had been treating his diabetes or blood pressure at home for well over 6 months. Patient has had slow improvement of his redness, swelling and discomfort in left leg since acute admission but certainly the infection is yet to be completely resolved. - Discharge Data Discharge Date: 04/12/17 Discharge Disposition: Home, Self-Care 01 Condition: Fair - Patient Summary/Data Complications: none Consults: Consultations 04/08/17 12:04 Consult to Physical Therapy [PT Evaluation and Treatment] [CONS] Routine Hospital Course: Much improvement of swelling, redness and drainage from LLE. Edema is down from 4+ to 1+, skin much less warm and red. Does still have some discomfort when ambulating but is controlled with pain meds. Patient had a fair amount of serous drainage from the leg but is much white sugar boiler now. He has had his INR followed and was up to 2.96 today on 10 mg per day of warfarin. Now afebrile. Did not get full control of his blood pressures on his 3 meds that he had used in the past so toprol was added and blood pressure is improved. Patient was put back on sliding scale insulin while here so will transition to Levemir at HS at home. Blood sugars have been in better control by discharge. - Patient Instructions Diet: Diabetic Diet Activity: As Tolerated - Discharge Plan Prescriptions/Med Rec: Clindamycin HCl [Cleocin] 150 mg PO QID #40 cap Insulin Detemir [Levemir] 20 unit SUBCUT BEDTIME #1 pen Lisinopril [Prinivil] 40 mg PO DAILY #30 tablet Metoprolol Succinate [Toprol XL] 50 mg PO DAILY #30 tab.er Warfarin [Coumadin] 7.5 mg PO DAILY #30 tablet Home Medications: Home Meds Hydrochlorothiazide 25 mg PO DAILY 11/06/15 [History] metFORMIN HCl [Metformin HCl] 500 mg PO BID 11/06/15 [History] Aspirin [Halfprin] 81 mg PO DAILY 04/02/17 [History] amLODIPine [Norvasc] 5 mg PO DAILY 04/02/17 [History] Clindamycin HCl [Cleocin] 150 mg PO QID #40 cap 04/12/17 [Rx] Insulin Detemir [Levemir] 20 unit SUBCUT BEDTIME #1 pen 04/12/17 [Rx] Lisinopril [Prinivil] 40 mg PO DAILY #30 tablet 04/12/17 [Rx] Metoprolol Succinate [Toprol XL] 50 mg PO DAILY #30 tab.er 04/12/17 [Rx] Warfarin [Coumadin] 7.5 mg PO DAILY #30 tablet 04/12/17 [Rx] Referrals: Isai Wallis MD [Primary Care Provider] - (Dr. Wallis on Monday. INR prior to appointment) - Discharge Summary/Plan Comment DC Time >30 min.: No Discharge Summary/Plan Comment: Patient will be discharged home on Lisinopril at a higher dose of 40 mg daily, HCTZ 25 mg daily, Toprol XL 50 mg daily and Amlodopine 5 mg daily. STart Levemir every HS. Continue Coumadin at 7.5 mg daily. Patient will return on Monday for INR, recheck by Dr. Wallis. - General Info Date of Service: 04/12/17 Admission Dx/Problem (Free Text: Cellulitis of LLE Popliteal thrombus Functional Status: Reports: Pain Controlled, Tolerating Diet, Ambulating - Review of Systems General: Reports: Weakness, Fatigue, Malaise HEENT: Reports: No Symptoms Pulmonary: Denies: Shortness of Breath, Cough Cardiovascular: Reports: Edema. Denies: Chest Pain, Lightheadedness Gastrointestinal: Reports: No Symptoms Musculoskeletal: Reports: Leg Pain Skin: Reports: Other (redness) Neurological: Reports: No Symptoms Psychiatric: Reports: No Symptoms - Patient Data Vitals - Most Recent: Last Vital Signs Temp 97.9 F 04/12/17 08:00 Pulse 88 04/12/17 08:36 Resp 18 04/12/17 08:00 BP 161/89 H 04/12/17 09:26 Pulse Ox 96 04/12/17 08:00 Weight - Most Recent: 333 lb 6.4 oz Med Orders - Current: Current Medications Discontinued Medications Acetaminophen (Tylenol) 650 mg PO Q4H PRN PRN Reason: Pain (Mild 1-3)/fever Last Admin: 04/10/17 11:18 Dose: 650 mg Hydrocodone Bitart/Acetaminophen ([place] 325-5 Mg) 2 tab PO Q4H PRN PRN Reason: Pain (moderate 4-6) Last Admin: 04/11/17 14:07 Dose: 2 tab Amlodipine Besylate (Norvasc) 5 mg PO DAILY [facility] Last Admin: 04/12/17 09:26 Dose: 5 mg Aspirin (Halfprin) 81 mg PO DAILY [facility] Last Admin: 04/12/17 08:34 Dose: 81 mg Ceftriaxone Sodium (Rocephin) 1 gm IVPUSH Q24H [facility] Last Admin: 04/11/17 20:00 Dose: 1 gm Clonidine HCl (Catapres) 0.1 mg PO STAT ONE Stop: 04/09/17 21:12 Last Admin: 04/09/17 21:41 Dose: 0.1 mg Docusate Sodium (Colace) 100 mg PO BID PRN PRN Reason: Constipation Enoxaparin Sodium (Lovenox) 160 mg SUBCUT Q12H [facility] Last Admin: 04/10/17 08:46 Dose: Not Given Enoxaparin Sodium (Lovenox) Confirm Administered Dose 100 mg .ROUTE .STK-MED ONE Stop: 04/09/17 09:50 Last Admin: 04/09/17 09:40 Dose: Not Given Enoxaparin Sodium (Lovenox) Confirm Administered Dose 60 mg .ROUTE .STK-MED ONE Stop: 04/09/17 09:50 Last Admin: 04/09/17 09:40 Dose: Not Given Enoxaparin Sodium (Lovenox) Confirm Administered Dose 100 mg .ROUTE .STK-MED ONE Stop: 04/09/17 19:51 Last Admin: 04/09/17 19:55 Dose: Not Given Enoxaparin Sodium (Lovenox) Confirm Administered Dose 60 mg .ROUTE .STK-MED ONE Stop: 04/09/17 19:52 Last Admin: 04/09/17 19:55 Dose: Not Given Hydrochlorothiazide (Hydrochlorothiazide) 25 mg PO DAILY [facility] Last Admin: 04/12/17 08:34 Dose: 25 mg Vancomycin HCl 1 gm/ Sodium (Chloride) 250 mls @ 167 mls/hr IV Q24H [facility] Last Admin: 04/11/17 19:55 Dose: 167 mls/hr Ibuprofen (Motrin) 800 mg PO Q6H PRN PRN Reason: Pain (mild 1-3) Last Admin: 04/11/17 19:55 Dose: 800 mg Insulin Aspart (Novolog) 0 unit SUBCUT WITHMEALSANDBED [facility] PRN Reason: Protocol Last Admin: 04/12/17 08:35 Dose: 3 unit Lisinopril (Prinivil) 40 mg PO DAILY [facility] Last Admin: 04/12/17 08:33 Dose: 40 mg Metformin HCl (Glucophage) 500 mg PO BIDMEALS [facility] Last Admin: 04/12/17 08:34 Dose: 500 mg Metoprolol Succinate (Toprol Xl) 50 mg PO DAILY [facility] Last Admin: 04/12/17 08:36 Dose: 50 mg Morphine Sulfate (Morphine) 2 mg IVPUSH Q2H PRN PRN Reason: Pain (severe 7-10) Ondansetron HCl (Zofran) 4 mg IV Q6H PRN PRN Reason: Nausea/Vomiting Sodium Chloride (Saline Flush) 10 ml FLUSH ASDIRECTED PRN PRN Reason: Keep Vein Open Spironolactone (Aldactone) 25 mg PO DAILY [facility] Last Admin: 04/11/17 08:11 Dose: 25 mg Warfarin Sodium (Coumadin) 10 mg PO DAILY@1200 [facility] Last Admin: 04/11/17 11:26 Dose: 10 mg - Exam General: Reports: Alert, Oriented HEENT: Reports: Mucous Membr. Moist/[place] Neck: Reports: Supple Lungs: Reports: Clear to Auscultation, Normal Respiratory Effort Cardiovascular: Reports: Regular Rate, Regular Rhythm GI/Abdominal Exam: Normal Bowel Sounds, Soft, Non-Tender Extremities: Normal Inspection, Pedal Edema Wound/Incisions: Reports: Erythema Improving Neurological: Reports: No New Focal Deficit *Q Meaningful Use (DIS) - VTE *Q VTE Criteria *Q: - Stroke *Q Stroke Criteria *Q: - AMI *Q AMI Criteria *Q:
== END 2017-04-12 10:30 | disposition home or self-care (01) | DRG 383 ==
LOC: CC.MS 10:17 → UNDOADMIN 10:17 → CC.MS 12:04
PROVIDERS: ADMIT Family Medicine; ATTEND Family Medicine
DX: L03.116 Cellulitis of left lower limb (principal); I82.432 Acute embolism and thrombosis of left popliteal vein; E11.9 Type 2 diabetes mellitus without complications; Z79.84 Long term (current) use of oral hypoglycemic drugs; E66.9 Obesity, unspecified; Z68.30 Body mass index [BMI] 30.0-30.9, adult; Z88.0 Allergy status to penicillin; Z79.82 Long term (current) use of aspirin; Z79.899 Other long term (current) drug therapy; I12.9 Hypertensive chronic kidney disease with stage 1 through stage 4 chronic kidney disease, or unspecified chronic kidney disease; E11.22 Type 2 diabetes mellitus with diabetic chronic kidney disease; N18.9 Chronic kidney disease, unspecified; Z86.14 Personal history of Methicillin resistant Staphylococcus aureus infection; Z91.19 Patient's noncompliance with other medical treatment and regimen
CPT/HCPCS: 36415; 80202; 82565; 82962; 85610; 97110-GP; A9270-GY; J0696; J1650; J1815-GY; J3370; J7050

== ENCOUNTER 2017-12-03 09:55 | Inpatient (IN) | payer BC ==
--- NOTE | 2017-12-03 10:38 | EDM.PDOC ---
ED HPI GENERAL MEDICAL PROBLEM - General Chief Complaint: Skin Complaint Stated Complaint: r)LEG REDNESS, SWELLING Time Seen by Provider: 12/03/17 10:05 Source of Information: Reports: Patient History Limitations: Reports: No Limitations - History of Present Illness INITIAL COMMENTS - FREE TEXT/NARRATIVE: Patient presents with increased right lower leg pain and redness. Has a history of having cellulitis in his leg so feels this is again the problem. Started noting more swelling and pain early yesterday am and has progressively become more red since that time. He denies any fevers. Has had mild sinus congestion and a cough. Mild diarrhea. Did see Selena a month ago for callus ' on the bottom of his feet. He did not have the redness at that time. She referred him to foot care per [facility]. He is an insulin dependent diabetic. Has been compliant with the insulin. States blood sugars have been running around 250. Onset: Gradual Duration: Day(s):, Getting Worse Location: Reports: Lower Extremity, Right Quality: Reports: Throbbing Severity: Moderate Associated Symptoms: Reports: Cough. Denies: Chest Pain, cough w sputum, Fever/ Chills, Loss of Appetite, Nausea/Vomiting, Shortness of Breath, Weakness - Related Data Allergies Allergy/AdvReac Type Severity Reaction Status Date / Time Penicillins Allergy Cannot Verified 12/03/17 10:25 Remember Home Meds: Home Meds metFORMIN HCl [Metformin HCl] 500 mg PO BID 11/06/15 [History] Aspirin [Halfprin] 81 mg PO DAILY 04/02/17 [History] amLODIPine [Norvasc] 10 mg PO DAILY 04/02/17 [History] Lisinopril [Prinivil] 40 mg PO DAILY #30 tablet 04/12/17 [Rx] Acetaminophen [Tylenol] 650 mg PO Q4H PRN 12/03/17 [History] Cholecalciferol (Vitamin D3) [Vitamin D3] 1,000 unit PO DAILY 12/03/17 [History] Furosemide 20 mg PO DAILY 12/03/17 [History] Insulin Glargine,Hum.Rec.Anlog [Basaglar Kwikpen U-100] 40 units INJECT DAILY [History] Metoprolol Succinate [Toprol XL] 100 mg PO DAILY 12/03/17 [History] Rivaroxaban [Xarelto] 20 mg PO DAILY 12/03/17 [History] glipiZIDE [Glipizide ER] 20 mg PO DAILY 12/03/17 [History] Past Medical History Cardiovascular History: Reports: Hypertension Genitourinary History: Reports: Chronic Renal Insuffiency Endocrine/Metabolic History: Reports: Diabetes, Type II, Obesity/BMI 30+ Dermatologic History: Reports: Other (See Below) Other Dermatologic History: cellulitis, MRSA - Infectious Disease History Infectious Disease History: Reports: MRSA - Past Surgical History HEENT Surgical History: Reports: Tonsillectomy Social & Family History - Family History Family Medical History: Noncontributory - Tobacco Use Smoking Status *Q: Never Smoker Second Hand Smoke Exposure: No - Caffeine Use Caffeine Use: Reports: Soda - Recreational Drug Use Recreational Drug Use: No ED ROS GENERAL - Review of Systems Review Of Systems: See Below Constitutional: Reports: Malaise. Denies: Fever, Chills, Weakness, Decreased Appetite HEENT: Reports: Rhinitis. Denies: Ear Pain, Throat Pain Respiratory: Reports: Cough. Denies: Shortness of Breath, Sputum Cardiovascular: Denies: Chest Pain, Edema, Lightheadedness Endocrine: Denies: Fatigue GI/Abdominal: Reports: Diarrhea. Denies: Abdominal Pain, Constipation, Nausea, Vomiting : Reports: No Symptoms Musculoskeletal: Reports: Leg Pain Skin: Reports: Erythema Neurological: Reports: No Symptoms ED EXAM, SKIN/RASH Exam: See Below Exam Limited By: No Limitations General Appearance: Alert, WD/WN, No Apparent Distress Ears: Normal External Exam, Normal TMs Nose: Normal Inspection, Normal Mucosa, No Blood Throat/Mouth: Normal Inspection, Normal Oropharynx Head: Normocephalic Neck: Normal Inspection, Supple, Non-Tender Respiratory/Chest: No Respiratory Distress, Lungs Clear, Normal Breath Sounds Cardiovascular: Regular Rate, Rhythm GI/Abdominal: Normal Bowel Sounds, Soft, Non-Tender Extremities: Pedal Edema, Redness, Other (Patient's right lower extremity is keshia/red, warm to the touch from the foot to the patellar region. Has chronic venous stasis changes noted. Tender. Skin taut.) Neurological: Alert, Oriented Skin: Erythema Location, Skin: Lower Extremity, Right Course - Vital Signs Last Recorded V/S: Last Vital Signs Temp 98.8 F 12/03/17 11:07 Pulse 84 12/03/17 11:07 Resp 20 12/03/17 11:07 BP 140/68 12/03/17 11:07 Pulse Ox 98 12/03/17 11:07 - Orders/Labs/Meds Orders: Active Orders 24 hr Category Date Time Status CULTURE BLOOD [BC] Stat Lab 12/03/17 10:10 Received CULTURE BLOOD [BC] Stat Lab 12/03/17 10:15 Received Labs: Laboratory Tests 12/03/17 12/03/17 12/03/17 Range/Units 10:10 10:10 10:10 WBC 13.3 H (5.0-10.0) 10^3/uL RBC 4.85 (4.50-6.00) 10^6/uL Hgb 12.7 L (14.0-18.0) g/dL Hct 41.3 (40.0-54.0) % MCV 85.2 (82.0-94.0) fL MCH 26.2 L (27.0-32.0) pg MCHC 30.8 L (33.0-38.0) g/dL RDW Coeff of Mo 17.6 H (11.0-15.0) % Plt Count 187 (150-400) 10^3/uL Neut % (Auto) 88.2 H (35-85) % Lymph % (Auto) 4.2 L (10-55) % [place] % (Auto) 7.1 (0-16) % Eos % (Auto) 0.3 (0-5) % Baso % (Auto) 0.2 (0-3) % Neut # (Auto) 11.75 H (1.80-7.00) 10^3/uL Lymph # (Auto) 0.56 L (1.00-4.80) 10^3/uL [place] # (Auto) 0.94 H (0.00-0.80) 10^3/uL Eos # (Auto) 0.04 (0.00-0.45) 10^3/uL Baso # (Auto) 0.02 10^3/uL PT 12.0 (9.7-12.3) SEC INR 1.17 (0.92-1.18) D-Dimer, Quantitative 0.34 (0.00-0.50) Sodium 133 L (136-145) mEq/L Potassium 4.8 (3.5-5.0) mEq/L Chloride 102 (98-106) mEq/L Carbon Dioxide 25 (21-32) mmol/L BUN 23 H (7-18) mg/dL Creatinine 1.7 H (0.7-1.3) mg/dL Est Cr Clr Drug Dosing TNP Estimated GFR (MDRD) 44 L (>=60) mL/min Glucose 193 H D (75-99) mg/dL Calcium 8.3 L (8.4-10.1) mg/dL Total Bilirubin 1.9 H (0.0-1.0) mg/dL AST 21 (15-37) U/L ALT 20 (12-78) U/L Alkaline Phosphatase 68 (46-116) U/L C-Reactive Protein 21.1 H (0.2-0.8) mg/dL Total Protein 7.4 (6.4-8.2) g/dL Albumin 3.2 L (3.4-5.0) g/dL - Re-Assessments/Exams Free Text/Narrative Re-Assessment/Exam: 12/03/17 11:12 WBC elevated, CRP 21.1. Patient does have a history of MRSA. Will admit and cover with IV Vanco and Rocephin. Departure - Departure Time of Disposition: 11:13 Disposition: Admitted As Inpatient 64 Condition: Fair Clinical Impression: Cellulitis Qualifiers: Site of cellulitis: extremity Site of cellulitis of extremity: lower extremity Laterality: left Qualified Code(s): L03.116 - Cellulitis of left lower limb - Discharge Information Referrals: PCP,None [Primary Care Provider] - Forms: ED Department Discharge - Problem List & Annotations (1) Cellulitis SNOMED Code(s): 875737069 Code(s): L03.90 - CELLULITIS, UNSPECIFIED Status: Acute Priority: High Current Visit: Yes Qualifiers: Site of cellulitis: extremity Site of cellulitis of extremity: lower extremity Laterality: right Qualified Code(s): L03.115 - Cellulitis of right lower limb (2) Diabetes mellitus SNOMED Code(s): 76961256 Code(s): E11.9 - TYPE 2 DIABETES MELLITUS WITHOUT COMPLICATIONS Status: Chronic Priority: Medium Current Visit: Yes Qualifiers: Diabetes mellitus type: type 2 Diabetes mellitus [facility] insulin use: with exterminator use Diabetes mellitus complication status: with kidney complications - Problem List Review Problem List Initiated/Reviewed/Updated: Yes - My Orders Last 24 Hours: My Active Orders 12/03/17 10:10 CULTURE BLOOD [BC] Stat 12/03/17 10:15 CULTURE BLOOD [BC] Stat - Assessment/Plan Admission H&P: Please use this note as an admission H&P Last 24 Hours: My Active Orders 12/03/17 10:10 CULTURE BLOOD [BC] Stat 12/03/17 10:15 CULTURE BLOOD [BC] Stat Assessment:: Cellulitis of RLE Plan: Admit inpatient to Dr. Wallis for cellulitis of RLE. Will start IV Rocephin and Vancomycin.
[2017-12-03 10:56] LABS: CHLORIDE,CL 102 mEq/L (98-106); SODIUM,NA 133 mEq/L (136-145)
[2017-12-03] MEDS ORDERED: cefTRIAXone 1 GM Vial IVPUSH SCH (11:43)
[2017-12-03] MEDS ORDERED: Temazepam 15 MG Cap PO PRN (11:43)
[2017-12-03] MEDS ORDERED: Acetaminophen 325 MG Tab PO PRN (11:43)
[2017-12-03] MEDS ORDERED: Ondansetron 4 MG Tab.DIS PO PRN (11:43)
[2017-12-03] MEDS ORDERED: Sodium Chloride 0.9% 10 ML Syringe FLUSH PRN (11:43)
[2017-12-03] MEDS: Insulin Aspart 100 Units/ML 3 ML Pen SUBCUT SCH ×3 (11:59→21:06)
[2017-12-03] MEDS: Vancomycin 2 GM in Sodium Chloride 0.9% 500 ML IV SCH (12:18)
[2017-12-03] MEDS: metFORMIN 500 MG Tab PO SCH (19:55)
[2017-12-04] MEDS: Vancomycin 2 GM in Sodium Chloride 0.9% 500 ML IV SCH ×2 (01:06→12:57)
[2017-12-04] MEDS: Metoprolol Succinate 25 MG Tab.ER PO SCH (08:21)
[2017-12-04] MEDS: Lisinopril 20 MG Tab PO SCH (08:21)
[2017-12-04] MEDS: amLODIPine 10 MG Tab PO SCH (08:21)
[2017-12-04] MEDS: glipiZIDE 5 MG Tab.ER PO SCH (08:21)
[2017-12-04] MEDS: Furosemide 20 MG Tab PO SCH (08:21)
[2017-12-04] MEDS: Aspirin 81 MG Tab.EC PO SCH (08:21)
[2017-12-04] MEDS: Insulin Aspart 100 Units/ML 3 ML Pen SUBCUT SCH ×2 (08:22→11:45)
[2017-12-04] MEDS: metFORMIN 500 MG Tab PO SCH (08:22)
[2017-12-04] MEDS: Insulin Detemir 100 Units/ML 3 ML Pen SUBCUT SCH (08:22)
[2017-12-04] MEDS: Cholecalciferol (Vitamin D3) 1,000 Unit Tab PO SCH (08:22)
--- NOTE | 2017-12-04 09:02 | PCM.PN ---
- General Info Date of Service: 12/04/17 Admission Dx/Problem (Free Text): Cellulitis RLE Functional Status: Reports: Pain Controlled, Tolerating Diet, Ambulating - Review of Systems General: Reports: Fever, Weakness, Fatigue, Malaise HEENT: Reports: No Symptoms Pulmonary: Denies: Shortness of Breath, Cough Cardiovascular: Denies: Chest Pain, Edema, Lightheadedness Gastrointestinal: Denies: Abdominal Pain, Nausea, Vomiting Genitourinary: Reports: No Symptoms Musculoskeletal: Reports: Leg Pain Skin: Reports: Other (erythema, warmth, discomfort to RLE) Neurological: Reports: No Symptoms - Patient Data Vitals - Most Recent: Last Vital Signs Temp 97.4 F 12/04/17 07:57 Pulse 85 12/04/17 08:21 Resp 18 12/04/17 07:57 BP 131/91 H 12/04/17 08:21 Pulse Ox 98 12/04/17 07:57 Weight - Most Recent: 387 lb 9.6 oz Lab Results Last 24 Hours: Laboratory Results - last 24 hr 12/03/17 12/03/17 12/03/17 Range/Units 10:10 10:10 10:10 WBC 13.3 H (5.0-10.0) 10^3/uL RBC 4.85 (4.50-6.00) 10^6/uL Hgb 12.7 L (14.0-18.0) g/dL Hct 41.3 (40.0-54.0) % MCV 85.2 (82.0-94.0) fL MCH 26.2 L (27.0-32.0) pg MCHC 30.8 L (33.0-38.0) g/dL RDW Coeff of Mo 17.6 H (11.0-15.0) % Plt Count 187 (150-400) 10^3/uL Neut % (Auto) 88.2 H (35-85) % Lymph % (Auto) 4.2 L (10-55) % [place] % (Auto) 7.1 (0-16) % Eos % (Auto) 0.3 (0-5) % Baso % (Auto) 0.2 (0-3) % Neut # (Auto) 11.75 H (1.80-7.00) 10^3/uL Lymph # (Auto) 0.56 L (1.00-4.80) 10^3/uL [place] # (Auto) 0.94 H (0.00-0.80) 10^3/uL Eos # (Auto) 0.04 (0.00-0.45) 10^3/uL Baso # (Auto) 0.02 10^3/uL PT 12.0 (9.7-12.3) SEC INR 1.17 (0.92-1.18) D-Dimer, Quantitative 0.34 (0.00-0.50) Sodium 133 L (136-145) mEq/L Potassium 4.8 (3.5-5.0) mEq/L Chloride 102 (98-106) mEq/L Carbon Dioxide 25 (21-32) mmol/L BUN 23 H (7-18) mg/dL Creatinine 1.7 H (0.7-1.3) mg/dL Est Cr Clr Drug Dosing TNP Estimated GFR (MDRD) 44 L (>=60) mL/min Glucose 193 H D (75-99) mg/dL POC Glucose (75-105) mg/dl Calcium 8.3 L (8.4-10.1) mg/dL Total Bilirubin 1.9 H (0.0-1.0) mg/dL AST 21 (15-37) U/L ALT 20 (12-78) U/L Alkaline Phosphatase 68 (46-116) U/L C-Reactive Protein 21.1 H (0.2-0.8) mg/dL Total Protein 7.4 (6.4-8.2) g/dL Albumin 3.2 L (3.4-5.0) g/dL 12/03/17 12/03/17 12/04/17 Range/Units 17:21 20:57 07:00 WBC 9.0 (5.0-10.0) 10^3/uL RBC 4.64 (4.50-6.00) 10^6/uL Hgb 12.2 L (14.0-18.0) g/dL Hct 39.8 L (40.0-54.0) % MCV 85.8 (82.0-94.0) fL MCH 26.3 L (27.0-32.0) pg MCHC 30.7 L (33.0-38.0) g/dL RDW Coeff of Mo 17.6 H (11.0-15.0) % Plt Count 152 (150-400) 10^3/uL Neut % (Auto) 81.2 (35-85) % Lymph % (Auto) 4.0 L (10-55) % [place] % (Auto) 14.0 (0-16) % Eos % (Auto) 0.6 (0-5) % Baso % (Auto) 0.2 (0-3) % Neut # (Auto) 7.28 H (1.80-7.00) 10^3/uL Lymph # (Auto) 0.36 L (1.00-4.80) 10^3/uL [place] # (Auto) 1.26 H (0.00-0.80) 10^3/uL Eos # (Auto) 0.05 (0.00-0.45) 10^3/uL Baso # (Auto) 0.02 10^3/uL PT (9.7-12.3) SEC INR (0.92-1.18) D-Dimer, Quantitative (0.00-0.50) Sodium (136-145) mEq/L Potassium (3.5-5.0) mEq/L Chloride (98-106) mEq/L Carbon Dioxide (21-32) mmol/L BUN (7-18) mg/dL Creatinine (0.7-1.3) mg/dL Est Cr Clr Drug Dosing Estimated GFR (MDRD) (>=60) mL/min Glucose (75-99) mg/dL POC Glucose 69 L 115 H (75-105) mg/dl Calcium (8.4-10.1) mg/dL Total Bilirubin (0.0-1.0) mg/dL AST (15-37) U/L ALT (12-78) U/L Alkaline Phosphatase (46-116) U/L C-Reactive Protein (0.2-0.8) mg/dL Total Protein (6.4-8.2) g/dL Albumin (3.4-5.0) g/dL 12/04/17 12/04/17 Range/Units 07:00 07:43 WBC (5.0-10.0) 10^3/uL RBC (4.50-6.00) 10^6/uL Hgb (14.0-18.0) g/dL Hct (40.0-54.0) % MCV (82.0-94.0) fL MCH (27.0-32.0) pg MCHC (33.0-38.0) g/dL RDW Coeff of Mo (11.0-15.0) % Plt Count (150-400) 10^3/uL Neut % (Auto) (35-85) % Lymph % (Auto) (10-55) % [place] % (Auto) (0-16) % Eos % (Auto) (0-5) % Baso % (Auto) (0-3) % Neut # (Auto) (1.80-7.00) 10^3/uL Lymph # (Auto) (1.00-4.80) 10^3/uL [place] # (Auto) (0.00-0.80) 10^3/uL Eos # (Auto) (0.00-0.45) 10^3/uL Baso # (Auto) 10^3/uL PT (9.7-12.3) SEC INR (0.92-1.18) D-Dimer, Quantitative (0.00-0.50) Sodium 132 L (136-145) mEq/L Potassium 4.7 (3.5-5.0) mEq/L Chloride 102 (98-106) mEq/L Carbon Dioxide 25 (21-32) mmol/L BUN 22 H (7-18) mg/dL Creatinine 1.7 H (0.7-1.3) mg/dL Est Cr Clr Drug Dosing 68.08 Estimated GFR (MDRD) 44 L (>=60) mL/min Glucose 79 D (75-99) mg/dL POC Glucose 72 L (75-105) mg/dl Calcium 8.2 L (8.4-10.1) mg/dL Total Bilirubin (0.0-1.0) mg/dL AST (15-37) U/L ALT (12-78) U/L Alkaline Phosphatase (46-116) U/L C-Reactive Protein 19.8 H (0.2-0.8) mg/dL Total Protein (6.4-8.2) g/dL Albumin (3.4-5.0) g/dL Med Orders - Current: Current Medications Acetaminophen (Tylenol) 650 mg PO Q4H PRN PRN Reason: Pain (Mild 1-3)/fever Amlodipine Besylate (Norvasc) 10 mg PO DAILY [facility] Last Admin: 12/04/17 08:21 Dose: 10 mg Aspirin (Halfprin) 81 mg PO DAILY [facility] Last Admin: 12/04/17 08:21 Dose: 81 mg Ceftriaxone Sodium (Rocephin) 1 gm IVPUSH DAILY@1200 [facility] Cholecalciferol (Vitamin D3) 1,000 units PO DAILY [facility] Last Admin: 12/04/17 08:22 Dose: 1,000 units Furosemide (Lasix) 20 mg PO DAILY [facility] Last Admin: 12/04/17 08:21 Dose: 20 mg Glipizide (Glucotrol Xl) 20 mg PO DAILY [facility] Last Admin: 12/04/17 08:21 Dose: 20 mg Vancomycin HCl 2 gm/ Sodium (Chloride) 500 mls @ 250 mls/hr IV Q12H [facility] Last Admin: 12/04/17 01:06 Dose: 250 mls/hr Insulin Aspart (Novolog) 0 unit SUBCUT WITHMEALSANDBED [facility]; Protocol Last Admin: 12/04/17 08:22 Dose: Not Given Insulin Detemir (Levemir) 40 unit SUBCUT DAILY [facility] Last Admin: 12/04/17 08:22 Dose: 40 unit Lisinopril (Prinivil) 40 mg PO DAILY [facility] Last Admin: 12/04/17 08:21 Dose: 40 mg Metformin HCl (Glucophage) 500 mg PO BIDMEALS [facility] Last Admin: 12/04/17 08:22 Dose: 500 mg Metoprolol Succinate (Toprol Xl) 100 mg PO DAILY [facility] Last Admin: 12/04/17 08:21 Dose: 100 mg Rivaroxaban (Xarelto () 20 Mg Own Med) 0 mg PO DAILY [facility] Ondansetron HCl (Zofran Odt) 4 mg PO Q4H PRN PRN Reason: nausea, able to take PO Last Admin: 12/03/17 12:19 Dose: 4 mg Sodium Chloride (Saline Flush) 10 ml FLUSH ASDIRECTED PRN PRN Reason: Keep Vein Open Temazepam (Restoril) 15 mg PO BEDTIME PRN PRN Reason: Sleep Vancomycin HCl (Pharmacy To Dose - Vancomycin) 1 dose .XX ASDIRECTED [facility] Discontinued Medications Ceftriaxone Sodium (Rocephin) 1 gm IVPUSH Q24H [facility] Last Admin: 12/03/17 11:54 Dose: 1 gm - Exam General: Alert, Oriented HEENT: Mucous Membr. Moist/[place] Neck: Supple Lungs: Clear to Auscultation, Normal Respiratory Effort Cardiovascular: Regular Rate, Regular Rhythm GI/Abdominal Exam: Normal Bowel Sounds, Soft, Non-Tender Extremities: Pedal Edema, Arm Pain, Increased Warmth, Redness (redness to RLE has improved since yesterday. Does continue to be tender. Less warmth than yesterday as well.) Wound/Incisions: Erythema Improving Neurological: No New Focal Deficit - Problem List & Annotations (1) Cellulitis SNOMED Code(s): 962015561 Code(s): L03.90 - CELLULITIS, UNSPECIFIED Status: Acute Priority: High Current Visit: Yes Qualifiers: Site of cellulitis: extremity Site of cellulitis of extremity: lower extremity Laterality: right Qualified Code(s): L03.115 - Cellulitis of right lower limb (2) Diabetes mellitus SNOMED Code(s): 87646273 Code(s): E11.9 - TYPE 2 DIABETES MELLITUS WITHOUT COMPLICATIONS Status: Chronic Priority: Medium Current Visit: Yes Qualifiers: Diabetes mellitus type: type 2 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 Diabetes mellitus complication status: with kidney complications - Problem List Review Problem List Initiated/Reviewed/Updated: Yes - My Orders Last 24 Hours: My Active Orders 12/03/17 10:10 CULTURE BLOOD [BC] Stat 12/03/17 10:15 CULTURE BLOOD [BC] Stat 12/03/17 11:17 Resuscitation Status Routine 12/03/17 11:43 Patient Status [ADT] Routine Blood Glucose Check, Bedside [RC] 0730,1130,1730,2100 Oxygen Therapy [RC] .PRN Up ad Lisseth [RC] .PRN Vital Signs [RC] 0000,0400,0800,1200,1600,2000 Acetaminophen [Tylenol] 650 mg PO Q4H PRN Ondansetron [Zofran ODT] 4 mg PO Q4H PRN Sodium Chloride 0.9% [Saline Flush] 10 ml FLUSH ASDIRECTED PRN Temazepam [Restoril] 15 mg PO BEDTIME PRN Vancomycin Pharmacy to Dose [Pharmacy to Dose - Vancomycin] 1 dose .XX ASDIRECTED Saline Lock Insert [OM.PC] Routine 12/03/17 12:00 Insulin Aspart [NovoLOG] See Protocol SUBCUT WITHMEALSANDBED 12/03/17 13:00 Vancomycin 2 gm Sodium Chloride 0.9% [Normal Saline] 500 ml IV Q12H 12/03/17 18:15 metFORMIN [Glucophage] 500 mg PO BIDMEALS 12/03/17 Lunch Consistent Carbohydrate Diet [DIET] 12/04/17 08:00 Aspirin [Halfprin] 81 mg PO DAILY Cholecalciferol (Vitamin D3) [Vitamin D3] 1,000 units PO DAILY Furosemide [Lasix] 20 mg PO DAILY Insulin Detemir [Levemir] 40 unit SUBCUT DAILY Lisinopril [Prinivil] 40 mg PO DAILY Metoprolol Succinate [Toprol XL] 100 mg PO DAILY Rivaroxaban [Xarelto] 0 mg PO DAILY amLODIPine [Norvasc] 10 mg PO DAILY glipiZIDE [Glucotrol XL] 20 mg PO DAILY 12/04/17 12:00 cefTRIAXone [Rocephin] 1 gm IVPUSH DAILY@1200 - Assessment Assessment:: Cellulitis RLE - Plan Plan:: Patient's leg improved. Less redness and warmth since yesterday. Does admit still having pain. WBC noted to be improved at 9.0. CRP 19.8. Blood sugar lower this am at 79. Did spike a fever of 100.6 last evening. Blood pressure has been stable, elevated somewhat this am at 131/91. Will continue with IV Vancomycin and Rocephin. Elevate. Follow up with repeat labs in am.
[2017-12-04] MEDS: cefTRIAXone 1 GM Vial IVPUSH SCH (11:40)
[2017-12-04] MEDS ORDERED: metFORMIN 500 MG Tab PO ONE (17:43)
[2017-12-05] MEDS ORDERED: Vancomycin 1 GM SDV IV ONE (00:30)
[2017-12-05] MEDS: metFORMIN 500 MG Tab PO SCH ×3 (03:13→17:41)
[2017-12-05] MEDS: Insulin Aspart 100 Units/ML 3 ML Pen SUBCUT SCH ×5 (03:14→21:18)
[2017-12-05] MEDS: Vancomycin 2 GM in Sodium Chloride 0.9% 500 ML IV SCH ×2 (03:14→12:36)
[2017-12-05] MEDS: glipiZIDE 5 MG Tab.ER PO SCH (07:39)
[2017-12-05] MEDS: Metoprolol Succinate 25 MG Tab.ER PO SCH (07:39)
[2017-12-05] MEDS: Lisinopril 20 MG Tab PO SCH (07:40)
[2017-12-05] MEDS: amLODIPine 10 MG Tab PO SCH (07:40)
[2017-12-05] MEDS: Furosemide 20 MG Tab PO SCH (07:40)
[2017-12-05] MEDS: Cholecalciferol (Vitamin D3) 1,000 Unit Tab PO SCH (07:40)
[2017-12-05] MEDS: Aspirin 81 MG Tab.EC PO SCH (07:40)
[2017-12-05] MEDS: Insulin Detemir 100 Units/ML 3 ML Pen SUBCUT SCH (07:42)
--- NOTE | 2017-12-05 09:18 | PCM.PN ---
- General Info Date of Service: 12/05/17 Admission Dx/Problem (Free Text): Cellulitis RLE Functional Status: Reports: Pain Controlled. Denies: Tolerating Diet, Ambulating - Review of Systems General: Reports: Malaise. Denies: Fever, Weakness, Fatigue HEENT: Reports: No Symptoms Pulmonary: Denies: Shortness of Breath, Cough Cardiovascular: Reports: Edema. Denies: Chest Pain, Lightheadedness Gastrointestinal: Denies: Abdominal Pain, Constipation, Diarrhea, Nausea, Vomiting Genitourinary: Reports: No Symptoms Musculoskeletal: Reports: Leg Pain Skin: Reports: Other (redness to right leg) Neurological: Reports: No Symptoms - Patient Data Vitals - Most Recent: Last Vital Signs Temp 97.4 F 12/05/17 07:25 Pulse 97 12/05/17 07:39 Resp 19 12/05/17 07:25 BP 141/80 H 12/05/17 07:40 Pulse Ox 99 12/05/17 07:25 Weight - Most Recent: 387 lb 9.6 oz Lab Results Last 24 Hours: Laboratory Results - last 24 hr 12/04/17 12/04/17 12/04/17 Range/Units 11:38 17:28 20:52 Sodium (136-145) mEq/L Potassium (3.5-5.0) mEq/L Chloride (98-106) mEq/L Carbon Dioxide (21-32) mmol/L BUN (7-18) mg/dL Creatinine (0.7-1.3) mg/dL Est Cr Clr Drug Dosing mL/min Estimated GFR (MDRD) (>=60) mL/min Glucose (75-99) mg/dL POC Glucose 118 H 78 122 H (75-105) mg/dl Calcium (8.4-10.1) mg/dL C-Reactive Protein (0.2-0.8) mg/dL 12/05/17 12/05/17 12/05/17 Range/Units 07:00 07:25 08:23 Sodium 133 L (136-145) mEq/L Potassium 4.4 (3.5-5.0) mEq/L Chloride 101 (98-106) mEq/L Carbon Dioxide 26 (21-32) mmol/L BUN 21 H (7-18) mg/dL Creatinine 1.6 H (0.7-1.3) mg/dL Est Cr Clr Drug Dosing 72.33 mL/min Estimated GFR (MDRD) 47 L (>=60) mL/min Glucose 72 L (75-99) mg/dL POC Glucose 75 107 H (75-105) mg/dl Calcium 7.8 L (8.4-10.1) mg/dL C-Reactive Protein 13.4 H (0.2-0.8) mg/dL Sam Results Last 24 Hours: Microbiology 12/03/17 10:15 Aerobic Blood Culture - Preliminary Blood - Venous NO GROWTH AFTER 1 DAY Anaerobic Blood Culture - Preliminary NO GROWTH AFTER 1 DAY 12/03/17 10:10 Aerobic Blood Culture - Preliminary Blood NO GROWTH AFTER 1 DAY Anaerobic Blood Culture - Preliminary NO GROWTH AFTER 1 DAY Med Orders - Current: Current Medications Acetaminophen (Tylenol) 650 mg PO Q4H PRN PRN Reason: Pain (Mild 1-3)/fever Amlodipine Besylate (Norvasc) 10 mg PO DAILY [facility] Last Admin: 12/05/17 07:40 Dose: 10 mg Aspirin (Halfprin) 81 mg PO DAILY [facility] Last Admin: 12/05/17 07:40 Dose: 81 mg Ceftriaxone Sodium (Rocephin) 1 gm IVPUSH DAILY@1200 [facility] Last Admin: 12/04/17 11:40 Dose: 1 gm Cholecalciferol (Vitamin D3) 1,000 units PO DAILY [facility] Last Admin: 12/05/17 07:40 Dose: 1,000 units Furosemide (Lasix) 20 mg PO DAILY [facility] Last Admin: 12/05/17 07:40 Dose: 20 mg Glipizide (Glucotrol Xl) 20 mg PO DAILY [facility] Last Admin: 12/05/17 07:39 Dose: 20 mg Vancomycin HCl 2 gm/ Sodium (Chloride) 500 mls @ 250 mls/hr IV Q12H [facility] Last Admin: 12/05/17 03:14 Dose: Not Given Insulin Aspart (Novolog) 0 unit SUBCUT WITHMEALSANDBED [facility]; Protocol Last Admin: 12/05/17 07:41 Dose: Not Given Insulin Detemir (Levemir) 40 unit SUBCUT DAILY [facility] Last Admin: 12/05/17 07:42 Dose: 40 unit Lisinopril (Prinivil) 40 mg PO DAILY [facility] Last Admin: 12/05/17 07:40 Dose: 40 mg Metformin HCl (Glucophage) 500 mg PO BIDMEALS [facility] Last Admin: 12/05/17 07:40 Dose: 500 mg Metoprolol Succinate (Toprol Xl) 100 mg PO DAILY [facility] Last Admin: 12/05/17 07:39 Dose: 100 mg Rivaroxaban (Xarelto () 20 Mg Own Med) 0 mg PO DAILY [facility] Ondansetron HCl (Zofran Odt) 4 mg PO Q4H PRN PRN Reason: nausea, able to take PO Last Admin: 12/03/17 12:19 Dose: 4 mg Sodium Chloride (Saline Flush) 10 ml FLUSH ASDIRECTED PRN PRN Reason: Keep Vein Open Temazepam (Restoril) 15 mg PO BEDTIME PRN PRN Reason: Sleep Vancomycin HCl (Pharmacy To Dose - Vancomycin) 1 dose .XX ASDIRECTED [facility] Discontinued Medications Ceftriaxone Sodium (Rocephin) 1 gm IVPUSH Q24H [facility] Last Admin: 12/03/17 11:54 Dose: 1 gm - Exam General: Alert, Oriented HEENT: Mucous Membr. Moist/[place] Neck: Supple Lungs: Clear to Auscultation, Normal Respiratory Effort Cardiovascular: Regular Rate, Regular Rhythm GI/Abdominal Exam: Normal Bowel Sounds, Soft, Non-Tender Extremities: Pedal Edema, Increased Warmth, Redness (redness continues to improve, less warmth. Still very tender to the medial aspect of his lower leg. 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 Less redness and warmth since yesterday. Does admit still having pain. WBC noted to be improved at 9.0. CRP 19.8. Blood sugar lower this am at 79. Did spike a fever of 100.6 last evening. Blood pressure has been stable, elevated somewhat this am at 131/91. Will continue with IV Vancomycin and Rocephin. Elevate. Follow up with repeat labs in am. 12-05-2017 Patient's right lower leg does continue to improve. Less redness and warmth than yesterday. Still very tender. Labs continue to improve, CRP down to 13.4. WBC has decreased from 13 down to 9. Blood pressure stable. Blood sugars are lower in the am. Will continue with IV Vancomycin and Rocephin. Follow CRP. Possible discharge in am.
[2017-12-05] MEDS: cefTRIAXone 1 GM Vial IVPUSH SCH (12:02)
[2017-12-05] MEDS: RIVAROXABAN 20 MG PO SCH ×2 (12:46→12:51)
[2017-12-05] MEDS ORDERED: RIVAROXABAN 20 MG PO ONE (13:00)
[2017-12-06] MEDS: Vancomycin 2 GM in Sodium Chloride 0.9% 500 ML IV SCH (00:54)
[2017-12-06] MEDS: Aspirin 81 MG Tab.EC PO SCH (07:29)
[2017-12-06] MEDS: Metoprolol Succinate 25 MG Tab.ER PO SCH (07:29)
[2017-12-06] MEDS: glipiZIDE 5 MG Tab.ER PO SCH (07:30)
[2017-12-06] MEDS: Cholecalciferol (Vitamin D3) 1,000 Unit Tab PO SCH (07:31)
[2017-12-06] MEDS: amLODIPine 10 MG Tab PO SCH (07:31)
[2017-12-06] MEDS: Lisinopril 20 MG Tab PO SCH (07:31)
[2017-12-06] MEDS: Furosemide 20 MG Tab PO SCH (07:31)
[2017-12-06] MEDS: metFORMIN 500 MG Tab PO SCH (07:32)
[2017-12-06] MEDS: Insulin Detemir 100 Units/ML 3 ML Pen SUBCUT SCH (07:32)
[2017-12-06] MEDS: RIVAROXABAN 20 MG PO SCH (07:33)
[2017-12-06] MEDS: Insulin Aspart 100 Units/ML 3 ML Pen SUBCUT SCH (07:50)
[2017-12-06 08:30] VITALS: BP 142/77
--- NOTE | 2017-12-06 15:19 | PCM.DCSUM1 ---
Discharge Summary - Hospital Course Free Text/Narrative:: Patient admitted on Monday for RLE cellulitis. He had noted that his leg was getting bigger and more red over the prior 24 hours. Has felt general malaise as a result. Was running low grade temps at home prior to admission. History of edema, had also been hospitalized back in March for cellulitis of the LLE. Initial labs showed a WBC of 13.3, CRP of 21.1. Creatinine 1.7. Patient does have a history of MRSA. Admitted and started on Vancomycin and Rocephin. - Discharge Data Discharge Date: 12/06/17 Discharge Disposition: Home, Self-Care 01 Condition: Fair - Discharge Diagnosis/Problem(s) (1) Cellulitis SNOMED Code(s): 052941162 ICD Code: L03.90 - CELLULITIS, UNSPECIFIED Status: Acute Priority: High Qualifiers: Site of cellulitis: extremity Site of cellulitis of extremity: lower extremity Laterality: right Qualified Code(s): L03.115 - Cellulitis of right lower limb (2) Diabetes mellitus SNOMED Code(s): 48200062 ICD Code: E11.9 - TYPE 2 DIABETES MELLITUS WITHOUT COMPLICATIONS Status: Chronic Priority: Medium Qualifiers: Diabetes mellitus type: type 2 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 Edema is much improved in both legs with elevation while here. He is experiencing pain with palpation but not taking any pain medications now. No open areas. Labs have improved during stay. WBC improved from 13.3 to 9. CRP continues to trend down from 21.1 to 13.4 now. Will discharge home on Cleocin. Continue to elevate legs. Follow up with DR. Wallis next week. - Patient Instructions Diet: Diabetic Diet Activity: As Tolerated - Discharge Plan Prescriptions/Med Rec: Acetaminophen/HYDROcodone [[place] 325-5 MG] 1 tab PO Q6H #20 tablet Clindamycin HCl [Cleocin HCl] 300 mg PO QID #28 capsule Home Medications: Home Meds metFORMIN HCl [Metformin HCl] 500 mg PO BID 11/06/15 [History] Aspirin [Halfprin] 81 mg PO DAILY 04/02/17 [History] amLODIPine [Norvasc] 10 mg PO DAILY 04/02/17 [History] Lisinopril [Prinivil] 40 mg PO DAILY #30 tablet 04/12/17 [Rx] Acetaminophen [Tylenol] 650 mg PO Q4H PRN 12/03/17 [History] Cholecalciferol (Vitamin D3) [Vitamin D3] 1,000 unit PO DAILY 12/03/17 [History] Furosemide 20 mg PO DAILY 12/03/17 [History] Insulin Glargine,Hum.Rec.Anlog [Basaglar Kwikpen U-100] 40 units INJECT DAILY [History] Metoprolol Succinate [Toprol XL] 100 mg PO DAILY 12/03/17 [History] Rivaroxaban [Xarelto] 20 mg PO DAILY 12/03/17 [History] glipiZIDE [Glipizide ER] 20 mg PO DAILY 12/03/17 [History] Acetaminophen/HYDROcodone [[place] 325-5 MG] 1 tab PO Q6H #20 tablet 12/06/17 [Rx] Clindamycin HCl [Cleocin HCl] 300 mg PO QID #28 capsule 12/06/17 [Rx] Patient Handouts: Cellulitis, Adult Forms: ED Department Discharge Referrals: Isai Wallis MD [ED Physician] - (Follow up with Dr. Wlalis in one week) - Discharge Summary/Plan Comment DC Time >30 min.: No Discharge Summary/Plan Comment: Discharge home Cleocin 300 mg QID for 7 days Follow up with Dr. Wallis next week - General Info Date of Service: 12/06/17 Admission Dx/Problem (Free Text: Cellulitis RLE Functional Status: Reports: Pain Controlled, Tolerating Diet, Ambulating - Review of Systems General: Reports: Malaise. Denies: Fever, Weakness, Fatigue HEENT: Reports: No Symptoms Pulmonary: Denies: Shortness of Breath, Cough, Sputum Cardiovascular: Reports: Edema. Denies: Chest Pain, Lightheadedness Gastrointestinal: Denies: Abdominal Pain, Nausea, Vomiting Genitourinary: Reports: No Symptoms Musculoskeletal: Reports: Leg Pain Skin: Reports: Other (erythema) Neurological: Reports: No Symptoms - Patient Data Vitals - Most Recent: Last Vital Signs Temp 96.3 F 12/06/17 08:00 Pulse 80 12/06/17 08:00 Resp 20 12/06/17 08:00 BP 142/77 H 12/06/17 08:00 Pulse Ox 100 12/06/17 08:00 Weight - Most Recent: 387 lb 9.6 oz Lab Results - Last 24 hrs: Laboratory Results - last 24 hr 12/05/17 12/05/17 12/06/17 Range/Units 17:16 20:05 07:41 POC Glucose 81 110 H 70 L (75-105) mg/dl ADRIÁN Results - Last 24 hrs: Microbiology 12/03/17 10:15 Aerobic Blood Culture - Preliminary Blood - Venous NO GROWTH AFTER 3 DAYS Anaerobic Blood Culture - Preliminary NO GROWTH AFTER 3 DAYS 12/03/17 10:10 Aerobic Blood Culture - Preliminary Blood NO GROWTH AFTER 3 DAYS Anaerobic Blood Culture - Preliminary NO GROWTH AFTER 3 DAYS Med Orders - Current: Current Medications Discontinued Medications Acetaminophen (Tylenol) 650 mg PO Q4H PRN PRN Reason: Pain (Mild 1-3)/fever Amlodipine Besylate (Norvasc) 10 mg PO DAILY [facility] Last Admin: 12/06/17 07:31 Dose: 10 mg Aspirin (Halfprin) 81 mg PO DAILY [facility] Last Admin: 12/06/17 07:29 Dose: 81 mg Ceftriaxone Sodium (Rocephin) 1 gm IVPUSH Q24H [facility] Last Admin: 12/03/17 11:54 Dose: 1 gm Ceftriaxone Sodium (Rocephin) 1 gm IVPUSH DAILY@1200 [facility] Last Admin: 12/05/17 12:02 Dose: 1 gm Cholecalciferol (Vitamin D3) 1,000 units PO DAILY [facility] Last Admin: 12/06/17 07:31 Dose: 1,000 units Furosemide (Lasix) 20 mg PO DAILY [facility] Last Admin: 12/06/17 07:31 Dose: 20 mg Glipizide (Glucotrol Xl) 20 mg PO DAILY [facility] Last Admin: 12/06/17 07:30 Dose: 20 mg Vancomycin HCl 2 gm/ Sodium (Chloride) 500 mls @ 250 mls/hr IV Q12H [facility] Last Admin: 12/06/17 00:54 Dose: 250 mls/hr Insulin Aspart (Novolog) 0 unit SUBCUT WITHMEALSANDBED [facility]; Protocol Last Admin: 12/06/17 07:50 Dose: Not Given Insulin Detemir (Levemir) 40 unit SUBCUT DAILY [facility] Last Admin: 12/06/17 07:32 Dose: 40 unit Lisinopril (Prinivil) 40 mg PO DAILY [facility] Last Admin: 12/06/17 07:31 Dose: 40 mg Metformin HCl (Glucophage) 500 mg PO BIDMEALS [facility] Last Admin: 12/06/17 07:32 Dose: 500 mg Metformin HCl (Glucophage) 500 mg PO .STK-MED ONE Stop: 12/04/17 17:44 Metoprolol Succinate (Toprol Xl) 100 mg PO DAILY [facility] Last Admin: 12/06/17 07:29 Dose: 100 mg Ptom Rivaroxaban ((Xarelto) 20 Mg) 20 mg PO DAILY [facility] Last Admin: 12/05/17 12:51 Dose: Not Given Ptom Rivaroxaban ((Xarelto) 20 Mg Tab) 1 each PO ONETIME ONE Stop: 12/05/17 13:01 Last Admin: 12/05/17 12:52 Dose: 1 each Ondansetron HCl (Zofran Odt) 4 mg PO Q4H PRN PRN Reason: nausea, able to take PO Last Admin: 12/03/17 12:19 Dose: 4 mg Sodium Chloride (Saline Flush) 10 ml FLUSH ASDIRECTED PRN PRN Reason: Keep Vein Open Sodium Chloride (Normal Saline) 500 ml IV .STK-MED ONE Stop: 12/05/17 00:31 Temazepam (Restoril) 15 mg PO BEDTIME PRN PRN Reason: Sleep Vancomycin HCl (Pharmacy To Dose - Vancomycin) 1 dose .XX ASDIRECTED [facility] Vancomycin HCl (Vancomycin) 2 gm IV .STK-MED ONE Stop: 12/05/17 00:31 - Exam General: Reports: Alert, Oriented HEENT: Reports: Mucous Membr. Moist/[place] Neck: Reports: Supple Lungs: Reports: Clear to Auscultation, Normal Respiratory Effort Cardiovascular: Reports: Regular Rate, Regular Rhythm GI/Abdominal Exam: Normal Bowel Sounds, Soft, Non-Tender Extremities: Other (redness, warmth and swelling of RLE is much improved today) Skin: Reports: Warm, Dry Wound/Incisions: Reports: Erythema Improving Neurological: Reports: No New Focal Deficit
== END 2017-12-06 09:40 | disposition home or self-care (01) | DRG 383 ==
LOC: CC.ED 09:55 → CC.MS 11:17 → UNDOADMIN 11:43 → CC.MS 11:44 → UNDOADMIN 11:44
PROVIDERS: ADMIT Physician Assistant Medical; ATTEND Family Medicine
DX: L03.115 Cellulitis of right lower limb (principal); E11.22 Type 2 diabetes mellitus with diabetic chronic kidney disease; Z68.42 Body mass index [BMI] 45.0-49.9, adult; R19.7 Diarrhea, unspecified; I12.9 Hypertensive chronic kidney disease with stage 1 through stage 4 chronic kidney disease, or unspecified chronic kidney disease; N18.9 Chronic kidney disease, unspecified; E66.9 Obesity, unspecified; Z86.14 Personal history of Methicillin resistant Staphylococcus aureus infection; Z79.82 Long term (current) use of aspirin; Z79.899 Other long term (current) drug therapy; Z79.4 Long term (current) use of insulin; Z88.0 Allergy status to penicillin
CPT/HCPCS: 36415; 80048; 80053; 82962; 85025; 85379; 85610; 86140; 87040; 99284; A9270-GY; J0696; J1815-GY; J3370; J7040

== ENCOUNTER 2017-12-21 06:03 | Emergency (ER) | payer BC ==
--- NOTE | 2017-12-21 06:35 | EDM.PDOC ---
ED HPI GENERAL MEDICAL PROBLEM - General Chief Complaint: CPR in Progress Stated Complaint: cardiac arrest Time Seen by Provider: 12/21/17 06:05 Source of Information: Reports: EMS, EMS Notes Reviewed - History of Present Illness INITIAL COMMENTS - FREE TEXT/NARRATIVE: Pt had gotten up to the bathroom at 0500. He was found by family at about 0505 wedged between the toilet and tub unresponsive and no pulse. No CPR was started on scene. Ambulance had difficulty getting him out of the area and then did start CPR. Unable to get vanessa tube inserted. Oral airway was placed with ventilation started with difficulty. Pt was too large for SACHI device to fit on him. No shock was advised on scene and enroute. When meat stocker arrived he did get IV in and 3 doses of EPI given with out change in asystole on monitor. When he arrived here he was asystole on the monitor. pupils were fixed and dilated. No heartbeat. Asystole checked on 3 leads and was asystole. 06 after conferring with Vance MEJIA MD it was decided to stop CPR and time of called. Discussed with Dr. Wallis. He does not feel that he needs autopsy as he had a fib and was not taking his anticoagulants, Had DM and was not compliant with meds or care. Family called and I spoke to Dina and discussed that we were not able to get a heart beat back and he was pronounced . They are not coming to the hospital. They would like body taken to [facility]. - Related Data Allergies Allergy/AdvReac Type Severity Reaction Status Date / Time Unable to Assess Allergy Unverified 12/21/17 06:46 Home Meds: Home Meds . [Unable to Verify Home Med List] 12/21/17 [History] Past Medical History Cardiovascular History: Reports: Afib, Hypertension Genitourinary History: Reports: Chronic Renal Insuffiency Endocrine/Metabolic History: Reports: Diabetes, Type II, Obesity/BMI 30+ Dermatologic History: Reports: Other (See Below) Other Dermatologic History: cellulitis, MRSA - Infectious Disease History Infectious Disease History: Reports: MRSA - Past Surgical History HEENT Surgical History: Reports: Tonsillectomy Social & Family History - Family History Family Medical History: Noncontributory - Caffeine Use Caffeine Use: Reports: Soda ED ROS GENERAL - Review of Systems Review Of Systems: Unable To Obtain ED EXAM, CPR - Physical Exam Exam: See Below Limited By: Unresponsive Eye Exam: Bilateral Eye: Abnormal Pupil (Pupils fixed and dilated.) Cardiovascular: Other (No heartbeat noted.) Course - Vital Signs Last Recorded V/S: Last Vital Signs Temp Pulse Resp 0 L 12/21/17 06:03 BP Pulse Ox Departure - Departure Time of Disposition: 06:05 Disposition: 20 Clinical Impression: Cardiac arrest - Discharge Information Referrals: Isai Wallis MD [Primary Care Provider] - Forms: ED Department Discharge - Problem List & Annotations (1) Cardiac arrest SNOMED Code(s): 087542347 Code(s): I46.9 - CARDIAC ARREST, CAUSE UNSPECIFIED Status: Acute - Problem List Review Problem List Initiated/Reviewed/Updated: Yes
== END 2017-12-21 07:25 | disposition expired ==
LOC: CC.ED 06:03
DX: I46.9 Cardiac arrest, cause unspecified (principal); I12.9 Hypertensive chronic kidney disease with stage 1 through stage 4 chronic kidney disease, or unspecified chronic kidney disease; E11.22 Type 2 diabetes mellitus with diabetic chronic kidney disease; E66.9 Obesity, unspecified; N18.9 Chronic kidney disease, unspecified
CPT/HCPCS: 99285